=== PATIENT | male | born 1965 | race African-American/Black ===

== ENCOUNTER 2020-08-04 18:25 | Inpatient (IN) | payer OTHER, SELFPAY ==
--- NOTE | 2020-08-04 | ECG_ITS ---
Test Reason : ADMISSION Blood Pressure : / mmHG Vent. Rate : 067 BPM Atrial Rate : 067 BPM P-R Int : 124 ms QRS Dur : 080 ms QT Int : 384 ms P-R-T Axes : 066 044 070 degrees QTc Int : 405 ms Normal sinus rhythm Normal ECG No previous ECGs available Referred By: Shilpi Hansen Electronically Signed By:ELSIE MCKINNEY MD
--- NOTE | 2020-08-04 18:50 | P.CNPS_ITS ---
History of Present Illness Date of Service: 08/04/2020 Chief Complaint: Schizophrenia Reason for Consult: 54 yo male brought to [facility] ED on 06/30/20. Brought to [facility] via ambulance. Mother reports pt has hx of schizophrenia and was increasingly violent at [facility]. He was throwing chemical around the house getting them in food and in living spaces. Pt li=ves with mother. Mother found him up wandering in middle of night with a knife stating he was going to kill the neighbirs. Additional Sources of Information: consultation with yoanna Allen [facility] Care Team, Dr Oleary in [facility] ED, and nursing on who completed nurse to nurse report with [facility] HPI Past Psychiatric History: Admitted to psych at [facility] in December 2019. No reported meds at home Became aggressive, assaultive, and paranoid upon transfer from [facility] and given Haldol 5 mg and ativan 2 mg IM at [facility]. Pt arrived at [facility] and sleepy. Unable to sign conditional voluntary at this time Medically cleared at [facility] NEUROPSYHILIS POSITIVE AND HIV POSITIVE COVID NEGATIVE ON 07/31/20 Personal & Social History: LIVES WITH MOM Assessment & Plan Assessment & Plan (1) Acute (undifferentiated) schizophrenia: Status: Acute Code(s): F23 - Brief psychotic disorder Recommendations: pt to be admitted to on sect 12 B (2) Psychosis: Status: Acute Code(s): F29 - Unspecified psychosis not due to a substance or known physiological condition Greater than 50% of the session was spent on counseling and/or coordination of care
--- NOTE | 2020-08-04 18:50 | PM.PSYCN ---
History of Present Illness Date of Service: 08/04/2020 Chief Complaint: Schizophrenia Reason for Consult: 54 yo male brought to [facility] ED on 06/30/20. Brought to [facility] via ambulance. Mother reports pt has hx of schizophrenia and was increasingly violent at [facility]. He was throwing chemical around the house getting them in food and in living spaces. Pt li=ves with mother. Mother found him up wandering in middle of night with a knife stating he was going to kill the neighbirs. Additional Sources of Information: consultation with yoanna Allen [facility] Care Team, Dr Oleary in [facility] ED, and nursing on who completed nurse to nurse report with [facility] HPI Past Psychiatric History: Admitted to psych at [facility] in December 2019. No reported meds at home Became aggressive, assaultive, and paranoid upon transfer from [facility] and given Haldol 5 mg and ativan 2 mg IM at [facility]. Pt arrived at [facility] and sleepy. Unable to sign conditional voluntary at this time Medically cleared at [facility] NEUROPSYHILIS POSITIVE AND HIV POSITIVE COVID NEGATIVE ON 07/31/20 Personal & Social History: LIVES WITH MOM Assessment & Plan Assessment & Plan (1) Acute (undifferentiated) schizophrenia: Status: Acute Code(s): F23 - Brief psychotic disorder Recommendations: pt to be admitted to on sect 12 B (2) Psychosis: Status: Acute Code(s): F29 - Unspecified psychosis not due to a substance or known physiological condition Greater than 50% of the session was spent on counseling and/or coordination of care
--- NOTE | 2020-08-04 19:20 | PC.NURSE ---
PT arrived on unit 18:55. PT sleepy @ this time and refused VS. PT received 5 mg of Haldol IM and 2 mg of Ativan IM before leaving [facility] at approximately 18:00 due to combative behavior. PT was stating he was not [place] and he is an imposter. Will complete admission when PT is able.
[2020-08-04 19:41] VITALS: BMI 25.3
--- NOTE | 2020-08-04 22:26 | PC.ADMIT ---
PT arrived on unit @ 16:55. PT heavily sedated after receiving 5mg Haldol IM and 2mg Ativan IM. Unable to complete full admission assessment due to patients sedated mental status.
[2020-08-05 07:08] LABS: MANUAL DIFF FLAG NO
[2020-08-05 07:13] LABS: Basophils Percent Auto 0.5 % (0-2); Eosinophils Absolute Auto 0.2 X10*3/uL (0.0-0.4); Eosinophils Percent Auto 5.2 % (0-4); Hematocrit 39.5 % (42-52); Hemoglobin 12.3 g/dl (14.0-18.0); Imm Gran Abs Auto 0.01 X10*3/uL (0.00-0.03); Imm Gran Pct Auto 0.3 % (0.0-0.4); Lymphocytes Absolute Auto 1.9 X10*3/uL (1.2-4.9); Lymphocytes Percent Auto 52.2 % (20-40); Mean Corpuscular HGB Conc 31.1 g/dl (31.0-36.0); Mean Corpuscular Hemoglobin 27.4 pg (27.0-33.0); Mean Platelet Volume 8.6 fL (9.4-12.4); Monocytes Absolute Auto 0.3 X10*3/uL (0.1-1.2); Monocytes Percent Auto 8.8 % (2-11); Neutrophils Absolute Auto 1.2 X10*3/uL (2.0-8.3); Platelet Count 183 X10*3/uL (160-400); Red Blood Count 4.49 X10*6/uL (4.60-5.80); Red Cell Distribution Width 13.2 % (11.0-16.0); White Blood Count 3.6 X10*3/uL (4.8-10.8)
[2020-08-05 07:46] LABS: Alanine Aminotransferase 13 U/L (0-40); Albumin Level 4.2 g/dL (3.5-5.0); Alkaline Phosphatase 59 U/L (39-117); Anion Gap 11 (12-20); Aspartate Amino Transferase 25 U/L (5-37); Bilirubin Direct 0.4 mg/dL (0.0-0.5); Blood Urea Nitrogen 15 mg/dL (9-16); Calcium 9.2 mg/dL (8.4-10.2); Carbon Dioxide 28 mmol/L (22-29); Chloride 105 mmol/L (96-108); Cholesterol 193 mg/dL; Creatinine Clr Calc Pharmacy 88.4; Estimated Glomerular Filt Rate > 60; Glucose Fasting 83 mg/dL (60-99); HDL Cholesterol 49 mg/dL; LDL Cholesterol Calculated 128 mg/dl; Potassium 4.5 mmol/L (3.3-5.1); Sodium 139 mmol/L (135-145); Total Protein 7.3 g/dL (6.5-8.0); Triglycerides 80 mg/dL
[2020-08-05 07:55] LABS: Free T4 (Free Thyroxine) 0.97 ng/dL (0.71-1.85)
[2020-08-05 08:09] LABS: Estimated Average Glucose 117 mg/dL; Hemoglobin A1c % 5.7 %
[2020-08-05 08:10] LABS: Vitamin B12 997 pg/mL (200-900)
--- NOTE | 2020-08-05 11:25 | PC.ADMIT ---
Pts admission completed this shift. Pt initially denies all mental health problems and states he does not know why he is here. Pt denies any medical problems. Pt denies taking any medications and the need to take medications. Pt denies SI/HI. At some point in the admission pt started to talk about virtual people who come into his house and steal things from him, such as food. Pt states these people live upstairs from him. Pt reports his mother does not understand this as she is old and doesnt understand technology. Pt cooperative with questioning, although denying any complaints. Pt has no insight into mental illness.
--- NOTE | 2020-08-05 11:56 | PM.IMCN ---
History of Present Illness Data of Consult Service Date: 08/05/20 Primary Care Provider: Unknown Physician HPI Reason for consult: Medical evaluation 54 year male with Schizophrenia who is presently admitted to Psych for decompensated schizophrenia. Patient is presently rather cooperative, and aswered questions apropriately. He has no acute medical complaint, he says he takes no medication for chronic medical illnesses, he used to smoke but quit years ago and doesn't drink alcohol or use ilicit drugs. He is no having any other issues, such as fever, sob or chest pain. I reviewed his labs, ECG to be unremarkable. Review of Systems Review of Systems: Gen: no fever Resp: no sob, no cough CV: no chest, no BURGOS, no leg edema GI: No n/v, no abd pain Neuro: No confusion Yes all other systems are reviewed and are negative [facility] Family history: reviewed and not pertinent Social History Household Members: Family Household Members Other:: mom Housing: Apartment Do you presently have visiting nurse or other home services: No Unable to assess alcohol history related to: Unknown Patient Tobacco Use Status: Current everyday Tobacco user Patient Interested in Nicotine Replacement: No Use of substances other than those prescribed or required for medical reasons: Unknown Currently Displaying Signs/Symptoms of Drug Intoxication Withdrawal: No Other Past Substance Use Problem:: pt denies, however d/t mental status unknown if pt is telling the truth Advance Directives: No Advance Directives Information Provided: No Do you have thoughts of harming others: None Do you have a plan to hurt others: No Plan Recently lost weight without trying: Unsure Meds Allergies Allergy/AdvReac Type Severity Reaction Status Date / Time No Known Allergies Allergy Verified 08/04/20 20:02 Active Medications: Current Medications Generic Name Dose Route Start Last Admin Trade Name Freq PRN Reason Stop Dose Admin Acetaminophen 650 mg 08/04/20 20:03 Acetaminophen 325 Mg Tablet PO Q6H PRN Headache/Pain Mild Scale (1-3) Al Hydroxide/Mg Hydroxide 30 ml 08/04/20 20:03 Magnesium Hydrox/Alum Hydrox 30 Ml Oral.Susp PO Q6H PRN Heartburn/Nausea Diphenhydramine HCl 50 mg 08/05/20 10:07 Diphenhydramine Hcl 25 Mg Tablet PO Q4H PRN agitation Haloperidol 5 mg 08/05/20 10:07 Haloperidol 5 Mg Tablet PO Q4H PRN agitation Hydroxyzine HCl 25 mg 06/29/21 20:03 Hydroxyzine Hcl 25 Mg Tablet PO BEDTIME PRN Anxiety Lorazepam 2 mg 08/05/20 10:07 Lorazepam 1 Mg Tablet PO Q4H PRN agitation Magnesium Hydroxide 30 ml 08/04/20 20:03 Milk Of Magnesia 30 Ml Oral.Susp PO DAILY PRN Constipation Trazodone HCl 50 mg 08/04/20 20:03 Trazodone Hcl 50 Mg Tablet PO BEDTIME PRN Insomnia Home Medications Medication Instructions Recorded Confirmed Last Taken Type Unobtainable 08/05/20 08/05/20 Unknown History Physical Exam Vital Signs and Narrative: Vital Signs: Body Mass Index 25.3 Const: Other: Constitutional Awake and Alert, No apparent distress Neck Supple, No lymphadenopathy Cardiovascular RRR, No M/R/G, S1 S2, No S3 S4, No pedal edema Respiratory Lungs clear, No respiratory distress Gastrointestinal Non tender, Non-distended Skin No rash Neurological Alert & oriented x3 Psychological Appropriate affect Results Labs CBC and Chem 7: 08/05/20 06:55 08/05/20 06:55 Labs: Laboratory Results - last 24 hr 08/05/20 08/05/20 08/05/20 06:55 06:55 06:55 MCV 88.0 MCH 27.4 MCHC 31.1 RDW 13.2 Plt Count 183 MPV 8.6 L Immature Gran % (Auto) 0.3 Neut % (Auto) 33.0 L Lymph % (Auto) 52.2 H [place] % (Auto) 8.8 Eos % (Auto) 5.2 H Baso % (Auto) 0.5 Lymph # (Auto) 1.9 [place] # (Auto) 0.3 Eos # (Auto) 0.2 Baso # (Auto) 0.0 Abs Immat Gran (auto) 0.01 Absolute Neuts (auto) 1.2 L Absolute Nucleated RBC 0.000 Nucleated RBC % (auto) 0.0 Anion Gap 11 L Estim Creat Clear Calc 88.4 Estimated GFR > 60 Fasting Glucose 83 Estimat Average Glucose 117 Hemoglobin A1c % 5.7 Calcium 9.2 Total Bilirubin 1.0 Direct Bilirubin 0.4 AST 25 ALT 13 Alkaline Phosphatase 59 Total Protein 7.3 Albumin 4.2 Triglycerides 80 Cholesterol 193 LDL Cholesterol, Calc 128 HDL Cholesterol 49 Vitamin B12 Free T4 0.97 08/05/20 06:55 MCV MCH MCHC RDW Plt Count MPV Immature Gran % (Auto) Neut % (Auto) Lymph % (Auto) [place] % (Auto) Eos % (Auto) Baso % (Auto) Lymph # (Auto) [place] # (Auto) Eos # (Auto) Baso # (Auto) Abs Immat Gran (auto) Absolute Neuts (auto) Absolute Nucleated RBC Nucleated RBC % (auto) Anion Gap Estim Creat Clear Calc Estimated GFR Fasting Glucose Estimat Average Glucose Hemoglobin A1c % Calcium Total Bilirubin Direct Bilirubin AST ALT Alkaline Phosphatase Total Protein Albumin Triglycerides Cholesterol LDL Cholesterol, Calc HDL Cholesterol Vitamin B12 997 H Free T4 Assessment and Plan (1) Psychosis: Status: Acute 54 year male with currently Psychiatrically hospitalized for Psychosis, has no acute medical issues at this time. Reveiewed labs, ECG, he has mild leukopenia of unknown significant and should monitored over time. Otherwise, continue present Psychiatric care. Please contact with new issues or concerns.
[2020-08-05] MEDS: risperiDONE 2 MG TABLET PO ×2 (14:19→20:47)
--- NOTE | 2020-08-05 16:44 | HO.PSYADMNOT ---
HPI Chief Complaint: Schizophrenia Sources of Information: patient interviewed, chart reviewed and crisis/core team assessment reviewed HPI Subjective Notes: Araujo Warning (Araujo warning given including mention that patients participation is voluntary and the possibility of court ordered involuntary commitment and treatment with antipsychotics. ), Section 8 and Conditional Voluntary (refused to sign) Narrative: patient is a 54-year-old male with history of psychotic illness who presents for disorganized behavior, threatening behavior and paranoid delusional thinking. Patient lying in bed on approach and remained so. He says that he is doing very well. When asked about how he ended up in the hospital he says they brought me here for test. He says ask the people brought me here they will take me the truth. 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 He says they also contaminate his food. He denies that he made any threats to hurt anyone or that he wants to hurt anyone but does allude to saying he would hurt his neighbors if they do not stop stealing and contaminating his food. Patient denies any SI at all. he also denies that he reportedly has stood in his mother's or family's bedroom holding a knife and making any threatening comments to anyone about anything. Patient denies AVH, depression or anxiety Or history of trauma and says he is very healthy. 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 and also is buying this hospital and [place]. Patient says that he talks to his coworkers about business stuff. and has a Bridger In his ear that is in visible. Since it is a virtual and with which he communicates to all his coworkers about regular business communications. He says that in his [place] he hears his coworkers telling him about the people upstairs, what they have been doing and they are aware of the neighbors intrusiveness. patient denies any insomnia. He does not want psychiatric medications because he is healthy and does not need them. [place] also mentioned history of Biktarvy (retroviral for HIV); he denies that this is his medication and denies any history of having HIV. He says he was prescribed this but he never picked it up and that people have taken his identity and impersonated him by coming to the hospital and that such medications are for them not him. Patient also says that he is currently in a movie and that typewriter repairer, whether typewriter repairer knows it or not, is a part of this movie, playing a role in it; he says that his admission to [facility] psychiatric unit a year ago was also part of a movie and this is just a continuation. regarding his mother's concern, patient says that his mother is an elderly lady and does not believe any of this because she is unaware of the virtual world and the existence of [employer] technology. Past Psychiatric History: Admitted to psych at [facility] in December 2019. No reported meds at home Became aggressive, assaultive, and paranoid upon transfer from [facility] and given Haldol 5 mg and ativan 2 mg IM at [facility]. Pt arrived at [facility] and sleepy. Unable to sign conditional voluntary at this time Medical Evaluation Reviewed: Hospitalist Eval Pending [facility] Medical History (Updated 08/05/20 @ 17:00 by Stephen iBggs MD) Schizophrenia Social History: lives with his mother Trauma History: Denied Diagnostics Vital Signs (24Hr): Body Mass Index 25.3 Labs Results: 08/05/20 06:55 08/05/20 06:55 Labs: Laboratory Results - last 48 hr 08/05/20 08/05/20 08/05/20 06:55 06:55 06:55 WBC 3.6 L RBC 4.49 L Hgb 12.3 L Hct 39.5 L MCV 88.0 MCH 27.4 MCHC 31.1 RDW 13.2 Plt Count 183 MPV 8.6 L Immature Gran % (Auto) 0.3 Neut % (Auto) 33.0 L Lymph % (Auto) 52.2 H [place] % (Auto) 8.8 Eos % (Auto) 5.2 H Baso % (Auto) 0.5 Lymph # (Auto) 1.9 [place] # (Auto) 0.3 Eos # (Auto) 0.2 Baso # (Auto) 0.0 Abs Immat Gran (auto) 0.01 Absolute Neuts (auto) 1.2 L Absolute Nucleated RBC 0.000 Nucleated RBC % (auto) 0.0 Sodium 139 Potassium 4.5 Chloride 105 Carbon Dioxide 28 Anion Gap 11 L BUN 15 Creatinine 1.06 Estim Creat Clear Calc 88.4 Estimated GFR > 60 Fasting Glucose 83 Estimat Average Glucose 117 Hemoglobin A1c % 5.7 Calcium 9.2 Total Bilirubin 1.0 Direct Bilirubin 0.4 AST 25 ALT 13 Alkaline Phosphatase 59 Total Protein 7.3 Albumin 4.2 Triglycerides 80 Cholesterol 193 LDL Cholesterol, Calc 128 HDL Cholesterol 49 Vitamin B12 Free T4 0.97 08/05/20 06:55 WBC RBC Hgb Hct MCV MCH MCHC RDW Plt Count MPV Immature Gran % (Auto) Neut % (Auto) Lymph % (Auto) [place] % (Auto) Eos % (Auto) Baso % (Auto) Lymph # (Auto) [place] # (Auto) Eos # (Auto) Baso # (Auto) Abs Immat Gran (auto) Absolute Neuts (auto) Absolute Nucleated RBC Nucleated RBC % (auto) Sodium Potassium Chloride Carbon Dioxide Anion Gap BUN Creatinine Estim Creat Clear Calc Estimated GFR Fasting Glucose Estimat Average Glucose Hemoglobin A1c % Calcium Total Bilirubin Direct Bilirubin AST ALT Alkaline Phosphatase Total Protein Albumin Triglycerides Cholesterol LDL Cholesterol, Calc HDL Cholesterol Vitamin B12 997 H Free T4 Meds/Allergies Meds Home Medications Acetaminophen (Acetaminophen 325 Mg Tablet) 650 mg PO Q6H PRN PRN Reason: Headache/Pain Mild Scale (1-3) Al Hydroxide/Mg Hydroxide (Magnesium Hydrox/Alum Hydrox 30 Ml Oral.Susp) 30 ml PO Q6H PRN PRN Reason: Heartburn/Nausea Diphenhydramine HCl (Diphenhydramine Hcl 25 Mg Tablet) 50 mg PO Q4H PRN PRN Reason: agitation Haloperidol (Haloperidol 5 Mg Tablet) 5 mg PO Q4H PRN PRN Reason: agitation Hydroxyzine HCl (Hydroxyzine Hcl 25 Mg Tablet) 25 mg PO BEDTIME PRN PRN Reason: Anxiety Lorazepam (Lorazepam 1 Mg Tablet) 2 mg PO Q4H PRN PRN Reason: agitation Magnesium Hydroxide (Milk Of Magnesia 30 Ml Oral.Susp) 30 ml PO DAILY PRN PRN Reason: Constipation Risperidone (Risperidone 2 Mg Tablet) 2 mg PO BID SUJATHA Last Admin: 08/05/20 14:19 Dose: 2 mg Documented by: Trazodone HCl (Trazodone Hcl 50 Mg Tablet) 50 mg PO BEDTIME PRN PRN Reason: Insomnia Allergies Allergies Allergy/AdvReac Type Severity Reaction Status Date / Time No Known Allergies Allergy Verified 08/04/20 20:02 Mental Status Exam Mental Status Exam Narrative: Pt is alert and oriented; behavior is cooperative, friendly and calm; patient is not in distress lying in bed with sheets pulled up to his neck; mood is described as good and affect constricted; eye contact appropriate; Speech is normal rate, volume and prosody and not pressured; no psychomotor agitation/retardation present; thought process is organized, linear, logical and goal directed. Thought content focused on paranoid delusions described in HPI; moderate grandiosity; denies any SI/HI. +AH Patients insight and judgment are impaired. Assessment & Plan Assessment & Plan (1) Schizophrenia: Status: Acute Qualifiers: Schizophrenia type: paranoid schizophrenia Qualified Code(s): F20.0 - Paranoid schizophrenia Code(s): F20.9 - Schizophrenia, unspecified Assessment and Plan: IMPRESSION: patient is a 54-year-old male with history of psychotic illness who presents for disorganized behavior, threatening behavior and paranoid delusional thinking. patient presents as floridly psychotic and meets criteria for schizophrenia. Patient currently lacks all insight. Crisis note reports his family says he has been making threats regarding his neighbors and has been threatening the family's presence. Patient currently refuses medications and refuses to sign into the hospital. Will continue to work on getting collateral. Will restart medications he was prescribed in the past, Risperdal; undecided about how to approach infectious disease consult for HIV as patient currently denies having HIV at all and has a history of being aggressive. Patient requires psychiatric admission for his safety, the safety of others, for medication management and stabilization plan: patient on 12 B Q 15 minutes checks for checks Will start Risperdal 2 mg b.i.d. in case patient changes his mind and is willing to take it Will continue to seek collateral will order Infectious disease consult at some point Patient educated on: diagnosis Informed Consent: understands Reason for continued inpatient stay Substantial Risk for: harm to others and med/psych decompensation
[2020-08-05 17:51] VITALS: BP 101/73; PULSE 84; RESP 16; TEMP 36.8; O2SAT 99
[2020-08-06 06:00] VITALS: BP 112/70; PULSE 59; RESP 18; O2SAT 98
[2020-08-06 07:00] VITALS: BMI 25.0
[2020-08-06] MEDS: risperiDONE 2 MG TABLET PO ×2 (08:30→21:31)
--- NOTE | 2020-08-06 16:39 | HO.PSYCHPN ---
Subjective Subjective Date of Service: 08/06/20 Reason For Visit: Schizophrenia Interim History: patient lying in bed. He says he is doing great and denies any problems. patient continues to deny any SI or HI saying never in my whole life. He also denies any side effects from Risperdal and said he felt nothing from taking. 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 Patient gave residential mortgage underwriter verbal permission to discuss his case with his mother and his nephew, Aiden who was living with them up until a few days ago Medication Compliance: Yes Side effects from medications: No Attending Groups: No Mental Status Exam Mental Status Exam Narrative: Pt is alert and oriented; behavior is cooperative, friendly and calm; patient is not in distress lying in bed, wearing casual cloths; mood is described as great and affect constricted; eye contact appropriate; Speech is normal rate, volume and prosody and not pressured; no psychomotor agitation/retardation present; thought process is organized, linear, logical and goal directed. Thought content with continued paranoid delusions and moderate grandiosity; denies any SI/HI. +AH Patients insight and judgment are impaired Diagnostics Vital Signs (24Hr): Vital Signs - 24 hr 08/05/20 17:51 08/06/20 06:00 Temperature 98.3 F Pulse Rate 84 59 Respiratory Rate 16 18 Blood Pressure 101/73 112/70 Pulse Oximetry 99 98 Body Mass Index 25.0 Labs Results: 08/05/20 06:55 08/05/20 06:55 Labs: Laboratory Results - last 48 hr 08/05/20 08/05/20 08/05/20 06:55 06:55 06:55 WBC 3.6 L RBC 4.49 L Hgb 12.3 L Hct 39.5 L MCV 88.0 MCH 27.4 MCHC 31.1 RDW 13.2 Plt Count 183 MPV 8.6 L Immature Gran % (Auto) 0.3 Neut % (Auto) 33.0 L Lymph % (Auto) 52.2 H [place] % (Auto) 8.8 Eos % (Auto) 5.2 H Baso % (Auto) 0.5 Lymph # (Auto) 1.9 [place] # (Auto) 0.3 Eos # (Auto) 0.2 Baso # (Auto) 0.0 Abs Immat Gran (auto) 0.01 Absolute Neuts (auto) 1.2 L Absolute Nucleated RBC 0.000 Nucleated RBC % (auto) 0.0 Sodium 139 Potassium 4.5 Chloride 105 Carbon Dioxide 28 Anion Gap 11 L BUN 15 Creatinine 1.06 Estim Creat Clear Calc 88.4 Estimated GFR > 60 Fasting Glucose 83 Estimat Average Glucose 117 Hemoglobin A1c % 5.7 Calcium 9.2 Total Bilirubin 1.0 Direct Bilirubin 0.4 AST 25 ALT 13 Alkaline Phosphatase 59 Total Protein 7.3 Albumin 4.2 Triglycerides 80 Cholesterol 193 LDL Cholesterol, Calc 128 HDL Cholesterol 49 Vitamin B12 Free T4 0.97 08/05/20 06:55 WBC RBC Hgb Hct MCV MCH MCHC RDW Plt Count MPV Immature Gran % (Auto) Neut % (Auto) Lymph % (Auto) [place] % (Auto) Eos % (Auto) Baso % (Auto) Lymph # (Auto) [place] # (Auto) Eos # (Auto) Baso # (Auto) Abs Immat Gran (auto) Absolute Neuts (auto) Absolute Nucleated RBC Nucleated RBC % (auto) Sodium Potassium Chloride Carbon Dioxide Anion Gap BUN Creatinine Estim Creat Clear Calc Estimated GFR Fasting Glucose Estimat Average Glucose Hemoglobin A1c % Calcium Total Bilirubin Direct Bilirubin AST ALT Alkaline Phosphatase Total Protein Albumin Triglycerides Cholesterol LDL Cholesterol, Calc HDL Cholesterol Vitamin B12 997 H Free T4 Medications Medications Current Medications Generic Name Dose Route Start Last Admin Trade Name Freq PRN Reason Stop Dose Admin Acetaminophen 650 mg 08/04/20 20:03 Acetaminophen 325 Mg Tablet PO Q6H PRN Headache/Pain Mild Scale (1-3) Al Hydroxide/Mg Hydroxide 30 ml 08/04/20 20:03 Magnesium Hydrox/Alum Hydrox 30 Ml Oral.Susp PO Q6H PRN Heartburn/Nausea Diphenhydramine HCl 50 mg 08/05/20 10:07 Diphenhydramine Hcl 25 Mg Tablet PO Q4H PRN agitation Haloperidol 5 mg 08/05/20 10:07 Haloperidol 5 Mg Tablet PO Q4H PRN agitation Hydroxyzine HCl 25 mg 08/04/20 20:03 Hydroxyzine Hcl 25 Mg Tablet PO BEDTIME PRN Anxiety Lorazepam 2 mg 08/05/20 10:07 Lorazepam 1 Mg Tablet PO Q4H PRN agitation Magnesium Hydroxide 30 ml 08/04/20 20:03 Milk Of Magnesia 30 Ml Oral.Susp PO DAILY PRN Constipation Risperidone 2 mg 08/05/20 12:55 08/06/20 08:30 Risperidone 2 Mg Tablet PO 2 mg BID SUJATHA Administration Trazodone HCl 50 mg 08/04/20 20:03 Trazodone Hcl 50 Mg Tablet PO BEDTIME PRN Insomnia Allergies Allergies Allergy/AdvReac Type Severity Reaction Status Date / Time No Known Allergies Allergy Verified 08/04/20 20:02 Assessment & Plan Assessment & Plan (1) Schizophrenia: Qualifiers: Schizophrenia type: paranoid schizophrenia Qualified Code(s): F20.0 - Paranoid schizophrenia Status: Acute Code(s): F20.9 - Schizophrenia, unspecified Assessment and Plan: IMPRESSION: patient is a 54-year-old male with history of psychotic illness who presents for disorganized behavior, threatening behavior and paranoid delusional thinking. patient presents as floridly psychotic and meets criteria for schizophrenia. Patient currently lacks all insight. Crisis note reports his family says he has been making threats regarding his neighbors and has been threatening the family's presence. Patient currently refuses medications and refuses to sign into the hospital. Will continue to work on getting collateral. Will restart medications he was prescribed in the past, Risperdal; undecided about how to approach infectious disease consult for HIV as patient currently denies having HIV at all and has a history of being aggressive. Patient requires psychiatric admission for his safety, the safety of others, for medication management and stabilization patient has been taking Risperdal 2 mg b.i.d. since admission [employer] Beauty [employer] Manager and team have try to get a hold of collateral, his mother to no avail he has given verbal permission to talk to both his mother and his nephew Aiden. Given his history reported homicidal threats, will likely have to hold patient for safety and stabilization. plan: patient on 12 B Q 15 minutes checks for checks Will start Risperdal 2 mg b.i.d. in case patient changes his mind and is willing to take it Will continue to seek collateral will order Infectious disease consult at some point As he has been prescribed HIV retroviral medication Greater than 50% of the session was spent on counseling and/or coordination of care Reason for contiued inpatient stay Substantial Risk for: med/psych decompensation
[2020-08-06 17:46] VITALS: BP 119/69; PULSE 81; TEMP 36.9
[2020-08-07] MEDS: risperiDONE 2 MG TABLET PO ×2 (08:48→20:59)
--- NOTE | 2020-08-07 09:57 | P.PNPSI_ITS ---
Subjective Subjective Date of Service: 08/07/20 Reason For Visit: Schizophrenia Interim History: patient lying in bed on inspector automatic typewriter's approach. He says that he is good Rn Stars let patient know that staff spoke to his mom who said that he cannot come home unless he is continuing to take medications patient said I do not want any medications. . . Nothing is wrong with me. inspector automatic typewriter reminded patient that he has been taking her Risperdal has been offered to him which helps someone's mind think clearly to which he said his mind thinks fine. Rn Stars 3 re-issued [place] warning and explained that the hospital has decided to ask the court to have him stay longer. Patient said I am not staying longer. . . There is nothing wrong with me. inspector automatic typewriter explained again that patient's family reports he was making threats to hurt the neighbors and was at times holding a knife. Patient said that is absolutely not true, that he has never made threats to anybody, that it was the neighbors were making threats to him and that inspector automatic typewriter should get the police report. Patient then said that his mother is mentally ill. Rn Stars agreed to try and secure the police report and patient said thank you good bye and interview was over patient gave verbal permission for inspector automatic typewriter to discuss his admission with his mother and nephew Aiden. Rn Stars spoke to Randa in who reports that he woke up from sleep to find the patient standing in his bedroom with a knife in his hand. When Aiden woke up he says his uncle ran out of the room; he says his uncle has been cursing and talking to himself all day and night. He said his talks about how the neighbors are watching him and that he will hurt them. Aiden reports that when the police came patient was pointing to imaginary cameras all over the house and at 1 point put his finger in his ear and acted as if he was talking on the phone. Rn Stars then spoke with patient's mother who said that she is very frightened of him. She said he is cursing all the time. She reports that her son Had a knife in his hand and referring to the neighbor's,said i'm going to kill the them and then said I am going to go outside and wait for them. Then he said he was going to go upstairs and kick their door in. When she said that you have to stop this he made a threatening remark toward her. patient's mother said she got the knife and hid it. At 1 point she reports patient said that his nephew Mendel is trying to kill him. His mother says that he has syphilis and HIV but has refused treatment. 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 She says up until July 2019 he was working full-time in [place]. Mental Status Exam Mental Status Exam Narrative: Pt is alert and oriented; behavior is marginally cooperative, superficially friendly, calmly lying in bed; patient is not in distress, wearing casual cloths; mood is described as good and affect constricted; eye contact appropriate; Speech is alexander, but normal rate, volume and prosody and not pressured; no psychomotor agitation/retardation present; thought process is organized, linear, logical and goal directed. Thought content with continued paranoid delusions and moderate grandiosity; denies any SI/HI. +AH Patients insight and judgment are impaired Diagnostics Vital Signs (24Hr): Vital Signs - 24 hr 08/06/20 17:46 Temperature 98.5 F Pulse Rate 81 Blood Pressure 119/69 Body Mass Index 25.0 Labs Results: 08/05/20 06:55 08/05/20 06:55 Medications Medications Current Medications Generic Name Dose Route Start Last Admin Trade Name Vaughnq PRN Reason Stop Dose Admin Acetaminophen 650 mg 08/04/20 20:03 Acetaminophen 325 Mg Tablet PO Q6H PRN Headache/Pain Mild Scale (1-3) Al Hydroxide/Mg Hydroxide 30 ml 08/04/20 20:03 Magnesium Hydrox/Alum Hydrox 30 Ml Oral.Susp PO Q6H PRN Heartburn/Nausea Diphenhydramine HCl 50 mg 08/05/20 10:07 Diphenhydramine Hcl 25 Mg Tablet PO Q4H PRN agitation Haloperidol 5 mg 08/05/20 10:07 Haloperidol 5 Mg Tablet PO Q4H PRN agitation Hydroxyzine HCl 25 mg 08/04/20 20:03 Hydroxyzine Hcl 25 Mg Tablet PO BEDTIME PRN Anxiety Lorazepam 2 mg 08/05/20 10:07 Lorazepam 1 Mg Tablet PO Q4H PRN agitation Magnesium Hydroxide 30 ml 08/04/20 20:03 Milk Of Magnesia 30 Ml Oral.Susp PO DAILY PRN Constipation Risperidone 2 mg 08/05/20 12:55 08/07/20 08:48 Risperidone 2 Mg Tablet PO 2 mg BID SUJATHA Administration Trazodone HCl 50 mg 08/04/20 20:03 Trazodone Hcl 50 Mg Tablet PO BEDTIME PRN Insomnia Allergies Allergies Allergy/AdvReac Type Severity Reaction Status Date / Time No Known Allergies Allergy Verified 08/04/20 20:02 Assessment & Plan Assessment & Plan (1) Schizophrenia: Qualifiers: Schizophrenia type: paranoid schizophrenia Qualified Code(s): F20.0 - Paranoid schizophrenia Status: Acute Code(s): F20.9 - Schizophrenia, unspecified Assessment and Plan: IMPRESSION: patient is a 54-year-old male with history of psychotic illness who presents for disorganized behavior, threatening behavior and paranoid delusional thinking. patient presents as floridly psychotic and meets criteria for schizophrenia. Patient currently lacks all insight. Crisis note reports his family says he has been making threats regarding his neighbors and has been threatening the family's presence. Patient currently refuses medications and refuses to sign into the hospital. Will continue to work on getting collateral. Will restart medications he was prescribed in the past, Risperdal; undecided about how to approach infectious disease consult for HIV as patient currently denies having HIV at all and has a history of being aggressive. Patient requires psychiatric admission for his safety, the safety of others, for medication management and stabilization patient has been taking Risperdal 2 mg b.i.d. since admission he has given verbal permission to talk to both his mother and his nephew Aiden And both report that patient has been making verbal threats to kill the neighbors and some times holding a knife while saying so. Given that patient is psychotic, has been reportedly making homicidal threats while holding a weapon and has no insight, team agreed to petition court for civil commitment for safety and stabilization. despite saying that he does not want medications and does not need them, he has thus far has been taking Risperdal 2 mg b.i.d. He said to the nurse that he figures if he takes it he will get out of here sooner. He remains floridly psychotic however with paranoid, persecutory delusions and auditory hallucinations plan: patient on 12 B Q 15 minutes checks for checks continue Risperdal 2 mg b.i.d. this patient has been willing to take it and it has been prescribed in the past Will continue to seek collateral will order Infectious disease consult at some point As he has been prescribed HIV retroviral medication; mother reports patient has untreated syphilis Greater than 50% of the session was spent on counseling and/or coordination of care Reason for contiued inpatient stay Substantial Risk for: harm to others
[2020-08-07 17:01] VITALS: BP 114/74; PULSE 68; RESP 16; TEMP 36.8; O2SAT 99
[2020-08-08 06:50] VITALS: BP 132/66; PULSE 62; RESP 16; O2SAT 99
[2020-08-08] MEDS: risperiDONE 2 MG TABLET PO ×2 (08:31→21:58)
--- NOTE | 2020-08-08 17:45 | HO.PSYCHPN ---
Subjective Subjective Date of Service: 08/08/20 Reason For Visit: Schizophrenia Subjective Notes: Section 7 Interim History: mood calm, lying in bed, polite but superficial; saying he doesn't need anything Medication Compliance: Yes Side effects from medications: No Attending Groups: No Review of Systems Review of Systems no changes Mental Status Exam Mental Status Exam Patient Appearance: Unkempt Patient Orientation: Person Level of Consciousness: Awake Patient Behavior: Guarded and Avoidant Mood Description: Apprehensive Affect Description: Withdrawn Ability to Follow Directions: Fair Speech Pattern: Impoverished, Appropriate and Soft-Spoken Thought Process: Evasive Thought Content: positive for [place] Judgement: Fair Diagnostics Vital Signs (24Hr): Vital Signs - 24 hr 08/08/20 06:50 Pulse Rate 62 Respiratory Rate 16 Blood Pressure 132/66 Pulse Oximetry 99 Body Mass Index 25.0 Labs Results: 08/05/20 06:55 08/05/20 06:55 Medications Medications Current Medications Generic Name Dose Route Start Last Admin Trade Name Freq PRN Reason Stop Dose Admin Acetaminophen 650 mg 08/04/20 20:03 Acetaminophen 325 Mg Tablet PO Q6H PRN Headache/Pain Mild Scale (1-3) Al Hydroxide/Mg Hydroxide 30 ml 08/04/20 20:03 Magnesium Hydrox/Alum Hydrox 30 Ml Oral.Susp PO Q6H PRN Heartburn/Nausea Diphenhydramine HCl 50 mg 08/05/20 10:07 Diphenhydramine Hcl 25 Mg Tablet PO Q4H PRN agitation Haloperidol 5 mg 08/05/20 10:07 Haloperidol 5 Mg Tablet PO Q4H PRN agitation Hydroxyzine HCl 25 mg 08/04/20 20:03 Hydroxyzine Hcl 25 Mg Tablet PO BEDTIME PRN Anxiety Lorazepam 2 mg 08/05/20 10:07 Lorazepam 1 Mg Tablet PO Q4H PRN agitation Magnesium Hydroxide 30 ml 08/04/20 20:03 Milk Of Magnesia 30 Ml Oral.Susp PO DAILY PRN Constipation Risperidone 2 mg 08/05/20 12:55 08/08/20 08:31 Risperidone 2 Mg Tablet PO 2 mg BID SUJATHA Administration Trazodone HCl 50 mg 08/04/20 20:03 Trazodone Hcl 50 Mg Tablet PO BEDTIME PRN Insomnia Allergies Allergies Allergy/AdvReac Type Severity Reaction Status Date / Time No Known Allergies Allergy Verified 06/29/21 20:02 Assessment & Plan Assessment & Plan (1) Schizophrenia: Qualifiers: Schizophrenia type: paranoid schizophrenia Qualified Code(s): F20.0 - Paranoid schizophrenia Status: Acute Code(s): F20.9 - Schizophrenia, unspecified Assessment and Plan: IMPRESSION: patient is a 54-year-old male with history of psychotic illness who presents for disorganized behavior, threatening behavior and paranoid delusional thinking. patient presents as floridly psychotic and meets criteria for schizophrenia. Patient currently lacks all insight. Crisis note reports his family says he has been making threats regarding his neighbors and has been threatening the family's presence. Patient currently refuses medications and refuses to sign into the hospital. Will continue to work on getting collateral. Will restart medications he was prescribed in the past, Risperdal; undecided about how to approach infectious disease consult for HIV as patient currently denies having HIV at all and has a history of being aggressive. Patient requires psychiatric admission for his safety, the safety of others, for medication management and stabilization patient has been taking Risperdal 2 mg b.i.d. since admission he has given verbal permission to talk to both his mother and his nephew Aiden And both report that patient has been making verbal threats to kill the neighbors and some times holding a knife while saying so. Given that patient is psychotic, has been reportedly making homicidal threats while holding a weapon and has no insight, team agreed to petition court for civil commitment for safety and stabilization. despite saying that he does not want medications and does not need them, he has thus far has been taking Risperdal 2 mg b.i.d. He said to the nurse that he figures if he takes it he will get out of here sooner. He remains floridly psychotic however with paranoid, persecutory delusions and auditory hallucinations plan: no changes Continue with current plan: Q 15 minutes checks for checks continue Risperdal 2 mg b.i.d. this patient has been willing to take it and it has been prescribed in the past Will continue to seek collateral will order Infectious disease consult at some point As he has been prescribed HIV retroviral medication; mother reports patient has untreated syphilis Greater than 50% of the session was spent on counseling and/or coordination of care Reason for contiued inpatient stay Substantial Risk for: harm to self, harm to others, inability to function and med/psych decompensation
[2020-08-08 18:00] VITALS: BP 106/67; PULSE 98; RESP 16; TEMP 37.3; O2SAT 98
[2020-08-09 06:00] VITALS: BP 121/78; PULSE 88; RESP 16; TEMP 36.4; O2SAT 98
[2020-08-09] MEDS: risperiDONE 2 MG TABLET PO ×2 (08:37→21:20)
[2020-08-09] MEDS: Milk of Magnesia 30 ML ORAL.SUSP PO (08:40)
--- NOTE | 2020-08-09 11:42 | P.PNPSI_ITS ---
Subjective Subjective Date of Service: 08/09/20 Reason For Visit: Schizophrenia Interim History: mood calm, lying in bed, polite but superficial; reporting constipation x 2 days; mg citrate ordered. guarded about emotions and internal experience Review of Systems Review of Systems no changes Yes all other systems are reviewed and are negative Gastrointestinal: Reports change in bowel habits and Reports constipation Mental Status Exam Mental Status Exam Narrative: Pt is alert and oriented; behavior is marginally cooperative, superficially friendly, calmly lying in bed; patient is not in distress, wearing casual cloths; mood is described as good and affect constricted; eye contact appropriate; Speech is alexander, but normal rate, volume and prosody and not pressured; no psychomotor agitation/retardation present; thought process is organized, linear, logical and goal directed. Thought content with continued par anoid delusions and moderate grandiosity; denies any SI/HI. +AH Patients insight and judgment are impaired Patient Appearance: Unkempt Patient Orientation: Person Level of Consciousness: Awake Patient Behavior: Guarded and Avoidant Mood Description: Apprehensive Affect Description: Withdrawn Ability to Follow Directions: Fair Speech Pattern: Impoverished, Appropriate and Soft-Spoken Diagnostics Vital Signs (24Hr): Vital Signs - 24 hr 08/08/20 18:00 08/09/20 06:00 Temperature 99.1 F 97.6 F Pulse Rate 98 88 Respiratory Rate 16 16 Blood Pressure 106/67 121/78 Pulse Oximetry 98 98 Body Mass Index 25.0 Labs Results: 08/05/20 06:55 08/05/20 06:55 Medications Medications Current Medications Generic Name Dose Route Start Last Admin Trade Name Freq PRN Reason Stop Dose Admin Acetaminophen 650 mg 08/04/20 20:03 Acetaminophen 325 Mg Tablet PO Q6H PRN Headache/Pain Mild Scale (1-3) Al Hydroxide/Mg Hydroxide 30 ml 08/04/20 20:03 Magnesium Hydrox/Alum Hydrox 30 Ml Oral.Susp PO Q6H PRN Heartburn/Nausea Diphenhydramine HCl 50 mg 08/05/20 10:07 Diphenhydramine Hcl 25 Mg Tablet PO Q4H PRN agitation Haloperidol 5 mg 08/05/20 10:07 Haloperidol 5 Mg Tablet PO Q4H PRN agitation Hydroxyzine HCl 25 mg 08/04/20 20:03 Hydroxyzine Hcl 25 Mg Tablet PO BEDTIME PRN Anxiety Lorazepam 2 mg 08/05/20 10:07 Lorazepam 1 Mg Tablet PO Q4H PRN agitation Magnesium Hydroxide 30 ml 08/04/20 20:03 08/09/20 08:40 Milk Of Magnesia 30 Ml Oral.Susp PO 30 ml DAILY PRN Administration Constipation Risperidone 2 mg 08/05/20 12:55 08/09/20 08:37 Risperidone 2 Mg Tablet PO 2 mg BID SUJATHA Administration Trazodone HCl 50 mg 08/04/20 20:03 Trazodone Hcl 50 Mg Tablet PO BEDTIME PRN Insomnia Allergies Allergies Allergy/AdvReac Type Severity Reaction Status Date / Time No Known Allergies Allergy Verified 08/04/20 20:02 Assessment & Plan Assessment & Plan (1) Schizophrenia: Qualifiers: Schizophrenia type: paranoid schizophrenia Qualified Code(s): F20.0 - Paranoid schizophrenia Status: Acute Code(s): F20.9 - Schizophrenia, unspecified Assessment and Plan: IMPRESSION: patient is a 54-year-old male with history of psychotic illness who presents for disorganized behavior, threatening behavior and paranoid delusional thinking. patient presents as floridly psychotic and meets criteria for schizophrenia. Patient currently lacks all insight. Crisis note reports his family says he has been making threats regarding his neighbors and has been threatening the family's presence. Patient currently refuses medications and refuses to sign into the hospital. Will continue to work on getting collateral. Will restart medications he was prescribed in the past, Risperdal; undecided about how to approach infectious disease consult for HIV as patient currently denies having HIV at all and has a history of being aggressive. Patient requires psychiatric admission for his safety, the safety of others, for medication management and stabilization patient has been taking Risperdal 2 mg b.i.d. since admission he has given verbal permission to talk to both his mother and his nephew Aiden And both report that patient has been making verbal threats to kill the neighbors and some times holding a knife while saying so. Given that patient is psychotic, has been reportedly making homicidal threats while holding a weapon and has no insight, team agreed to petition court for civil commitment for safety and stabilization. despite saying that he does not want medications and does not need them, he has thus far has been taking Risperdal 2 mg b.i.d. He said to the nurse that he figures if he takes it he will get out of here sooner. He remains floridly psychotic however with paranoid, persecutory delusions and auditory hallucinations plan: mg citrate ordered Q 15 minutes checks for checks continue Risperdal 2 mg b.i.d. this patient has been willing to take it and it has been prescribed in the past continue to seek collateral will order Infectious disease consult at some point As he has been prescribed HIV retroviral medication; mother reports patient has untreated syphilis Greater than 50% of the session was spent on counseling and/or coordination of care Reason for contiued inpatient stay Substantial Risk for: harm to self, harm to others, rapid decompensation and med/psych decompensation
[2020-08-09] MEDS: Magnesium Citrate 300 ML SOLUTION 150 ML PO (14:34)
[2020-08-09 17:06] VITALS: BP 120/58; PULSE 64; TEMP 36.3; O2SAT 95
[2020-08-10 06:00] VITALS: BP 119/70; PULSE 66; RESP 16; TEMP 36.5; O2SAT 99
[2020-08-10] MEDS: risperiDONE 2 MG TABLET PO ×2 (09:02→20:34)
--- NOTE | 2020-08-10 12:33 | HO.PSYCHPN ---
Subjective Subjective Date of Service: 08/10/20 Reason For Visit: Schizophrenia Interim History: mood calm, lying in bed, polite but superficial;stating he is here to make a movie. guarded about emotions and internal experience Review of Systems Review of Systems no changes Yes all other systems are reviewed and are negative Gastrointestinal: Reports change in bowel habits and Reports constipation Mental Status Exam Mental Status Exam Patient Appearance: Unkempt Patient Orientation: Person Level of Consciousness: Awake Patient Behavior: Guarded and Avoidant Mood Description: Apprehensive Affect Description: Withdrawn Patient Cognition Impaired: Yes Ability to Follow Directions: Fair Speech Pattern: Impoverished, Appropriate and Soft-Spoken Delusions: Grandiose and Present (states he is currently here to make a movie) Thought Process: Illogical Thought Content: positive for Disorganized Judgement: Poor Diagnostics Vital Signs (24Hr): Vital Signs - 24 hr 08/09/20 17:06 08/10/20 06:00 Temperature 97.4 F 97.7 F Pulse Rate 64 66 Respiratory Rate 16 Blood Pressure 120/58 L 119/70 Pulse Oximetry 95 99 Body Mass Index 25.0 Labs Results: 08/05/20 06:55 08/05/20 06:55 Medications Medications Current Medications Generic Name Dose Route Start Last Admin Trade Name Freq PRN Reason Stop Dose Admin Acetaminophen 650 mg 08/04/20 20:03 Acetaminophen 325 Mg Tablet PO Q6H PRN Headache/Pain Mild Scale (1-3) Al Hydroxide/Mg Hydroxide 30 ml 08/04/20 20:03 Magnesium Hydrox/Alum Hydrox 30 Ml Oral.Susp PO Q6H PRN Heartburn/Nausea Diphenhydramine HCl 50 mg 08/05/20 10:07 Diphenhydramine Hcl 25 Mg Tablet PO Q4H PRN agitation Haloperidol 5 mg 08/05/20 10:07 Haloperidol 5 Mg Tablet PO Q4H PRN agitation Hydroxyzine HCl 25 mg 08/04/20 20:03 Hydroxyzine Hcl 25 Mg Tablet PO BEDTIME PRN Anxiety Lorazepam 2 mg 08/05/20 10:07 Lorazepam 1 Mg Tablet PO Q4H PRN agitation Magnesium Hydroxide 30 ml 08/04/20 20:03 08/09/20 08:40 Milk Of Magnesia 30 Ml Oral.Susp PO 30 ml DAILY PRN Administration Constipation Risperidone 2 mg 08/05/20 12:55 08/10/20 09:02 Risperidone 2 Mg Tablet PO 2 mg BID SUJATHA Administration Trazodone HCl 50 mg 08/04/20 20:03 Trazodone Hcl 50 Mg Tablet PO BEDTIME PRN Insomnia Allergies Allergies Allergy/AdvReac Type Severity Reaction Status Date / Time No Known Allergies Allergy Verified 08/04/20 20:02 Assessment & Plan Assessment & Plan (1) Schizophrenia: Qualifiers: Schizophrenia type: paranoid schizophrenia Qualified Code(s): F20.0 - Paranoid schizophrenia Status: Acute Code(s): F20.9 - Schizophrenia, unspecified Assessment and Plan: IMPRESSION: patient is a 54-year-old male with history of psychotic illness who presents for disorganized behavior, threatening behavior and paranoid delusional thinking. patient presents as floridly psychotic and meets criteria for schizophrenia. Patient currently lacks all insight. Crisis note reports his family says he has been making threats regarding his neighbors and has been threatening the family's presence. Patient currently refuses medications and refuses to sign into the hospital. Will continue to work on getting collateral. Will restart medications he was prescribed in the past, Risperdal; undecided about how to approach infectious disease consult for HIV as patient currently denies having HIV at all and has a history of being aggressive. Patient requires psychiatric admission for his safety, the safety of others, for medication management and stabilization patient has been taking Risperdal 2 mg b.i.d. since admission he has given verbal permission to talk to both his mother and his nephew Aiden And both report that patient has been making verbal threats to kill the neighbors and some times holding a knife while saying so. Given that patient is psychotic, has been reportedly making homicidal threats while holding a weapon and has no insight, team agreed to petition court for civil commitment for safety and stabilization. despite saying that he does not want medications and does not need them, he has thus far has been taking Risperdal 2 mg b.i.d. He said to the nurse that he figures if he takes it he will get out of here sooner. He remains floridly psychotic however with paranoid, persecutory delusions and auditory hallucinations plan: Q 15 minutes checks for safety continue Risperdal 2 mg b.i.d. this patient has been willing to take it and it has been prescribed in the past continue to seek collateral will order Infectious disease consult at some point As he has been prescribed HIV retroviral medication; mother reports patient has untreated syphilis Greater than 50% of the session was spent on counseling and/or coordination of care Reason for contiued inpatient stay Substantial Risk for: harm to self, harm to others, inability to function, rapid decompensation and med/psych decompensation
[2020-08-10 18:00] VITALS: BP 108/66; PULSE 77; TEMP 36.6
[2020-08-11 06:00] VITALS: BP 106/68; PULSE 58; RESP 18; TEMP 36.3; O2SAT 100
[2020-08-11] MEDS: risperiDONE 2 MG TABLET PO ×2 (08:34→20:47)
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
[2020-08-11 16:30] VITALS: BP 118/58; PULSE 73; TEMP 36.8
[2020-08-12 06:00] VITALS: BP 105/61; PULSE 77; RESP 16; TEMP 36.6; O2SAT 96
[2020-08-12] MEDS: risperiDONE 2 MG TABLET PO ×2 (08:54→20:13)
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
[2020-08-12 16:12] VITALS: BP 122/74; PULSE 71; RESP 18; TEMP 37.2
--- NOTE | 2020-08-12 17:09 | HO.PSYCHPN ---
Subjective Subjective Date of Service: 08/12/20 Reason For Visit: Schizophrenia Interim History: patient lying in bed, smiles at race and sports book writer is approach. Patient maintains that the reason he is here is because he is in a movie and reiterates that does not matter that race and sports book writer does not believe he is acting or and a script or even if race and sports book writer is a real doctor, patient knows that he is in a movie and he knows he has a part to play a which is a continuation of his last admission. Otherwise patient said he slept well, is planning to meet with his mother who is visiting today and has no complaints or requests. Mental Status Exam Mental Status Exam Narrative: Pt is alert and oriented; behavior is cooperative; he is calmly lying in bed; patient is not in distress, wearing casual cloths; mood is described as good and affect constricted; eye contact appropriate; Speech is alexander, but normal rate, volume and prosody and not pressured; no psychomotor agitation/retardation present; thought process is linear and goal directed. Thought content with continued paranoid, persecutory delusions and moderate grandiosity; denies any SI/HI. +AH Patients insight and judgment are impaired Diagnostics Vital Signs (24Hr): Vital Signs - 24 hr 08/12/20 06:00 08/12/20 16:12 Temperature 98 F 99 F Pulse Rate 77 71 Respiratory Rate 16 18 Blood Pressure 105/61 122/74 Pulse Oximetry 96 Body Mass Index 25.0 Labs Results: 08/05/20 06:55 08/05/20 06:55 Medications Medications Current Medications Generic Name Dose Route Start Last Admin Trade Name Freq PRN Reason Stop Dose Admin Acetaminophen 650 mg 08/04/20 20:03 Acetaminophen 325 Mg Tablet PO Q6H PRN Headache/Pain Mild Scale (1-3) Al Hydroxide/Mg Hydroxide 30 ml 08/04/20 20:03 Magnesium Hydrox/Alum Hydrox 30 Ml Oral.Susp PO Q6H PRN Heartburn/Nausea Diphenhydramine HCl 50 mg 08/05/20 10:07 Diphenhydramine Hcl 25 Mg Tablet PO Q4H PRN agitation Haloperidol 5 mg 08/05/20 10:07 Haloperidol 5 Mg Tablet PO Q4H PRN agitation Hydroxyzine HCl 25 mg 08/04/20 20:03 Hydroxyzine Hcl 25 Mg Tablet PO BEDTIME PRN Anxiety Lorazepam 2 mg 08/05/20 10:07 Lorazepam 1 Mg Tablet PO Q4H PRN agitation Magnesium Hydroxide 30 ml 08/04/20 20:03 08/09/20 08:40 Milk Of Magnesia 30 Ml Oral.Susp PO 30 ml DAILY PRN Administration Constipation Risperidone 2 mg 08/05/20 12:55 08/12/20 08:54 Risperidone 2 Mg Tablet PO 2 mg BID SUJATHA Administration Trazodone HCl 50 mg 08/04/20 20:03 Trazodone Hcl 50 Mg Tablet PO BEDTIME PRN Insomnia Allergies Allergies Allergy/AdvReac Type Severity Reaction Status Date / Time No Known Allergies Allergy Verified 08/04/20 20:02 Assessment & Plan Assessment & Plan (1) HIV (human immunodeficiency virus infection): Status: Acute Code(s): B20 - Human immunodeficiency virus [HIV] disease Assessment and Plan: He is documented HIV,hard copy at [facility] on their EMR He has been briefly on Biktarvy He has had CD4 count 249 in past It may be lower now and needs PJP prophylaxis if under 100 (2) Syphilis: Status: Acute Code(s): A53.9 - Syphilis, unspecified Assessment and Plan: Possible neurosyphilis was treated with IV PCN completed 12/26 There is no ocular or hearing symptoms at this time Titer should resolve four fold at least Check titer IMPRESSION: patient is a 54-year-old male with history of psychotic illness who presents for disorganized behavior, threatening behavior and paranoid delusional thinking. patient presents as floridly psychotic and meets criteria for schizophrenia. Patient currently lacks all insight. Crisis note reports his family says he has been making threats regarding his neighbors and has been threatening the family's presence. Patient currently refuses medications and refuses to sign into the hospital. Will continue to work on getting collateral. Will restart medications he was prescribed in the past, Risperdal; undecided about how to approach infectious disease consult for HIV as patient currently denies having HIV at all and has a history of being aggressive. Patient requires psychiatric admission for his safety, the safety of others, for medication management and stabilization patient has been taking Risperdal 2 mg b.i.d. since admission he has given verbal permission to talk to both his mother and his nephew Aiden And both report that patient has been making verbal threats to kill the neighbors and some times holding a knife while saying so. Given that patient is psychotic, has been reportedly making homicidal threats while holding a weapon and has no insight, team agreed to petition court for civil commitment for safety and stabilization. despite saying that he does not want medications and does not need them, he has thus far has been taking Risperdal 2 mg b.i.d. He said to the nurse that he figures if he takes it he will get out of here sooner. He remains floridly psychotic however with paranoid, persecutory delusions and auditory hallucinations; patient continues to lack insight plan: proceed with petition for civil commitment patient on 12 Q 15 minutes checks for safety continue Risperdal 2 mg b.i.d. this patient has been willing to take it and it has been prescribed in the past infectious disease consult see above for recs Greater than 50% of the session was spent on counseling and/or coordination of care Reason for contiued inpatient stay Substantial Risk for: harm to others and med/psych decompensation
[2020-08-12 17:23] LABS: Syphilis Screen Reactive (Nonreactive)
[2020-08-13 06:47] VITALS: BP 143/89; PULSE 81; RESP 16; TEMP 36.8; O2SAT 98
[2020-08-13 07:00] VITALS: BMI 25.4
[2020-08-13] MEDS: risperiDONE 2 MG TABLET PO (08:27)
[2020-08-13 14:56] LABS: Absolute CD3 Count 849 cells/uL (840-3060); Absolute CD4 Count 87 cells/uL (490-1740); Absolute CD8 Count 739 cells/uL (180-1170); Absolute Lymphocytes 1493 cells/uL (850-3900); CD4 CD8 Ratio 0.12 (0.86-5.00); Percent CD3 Cells 57 % (57-85); Percent CD4 Cells 6 % (30-61); Percent CD8 Cells 49 % (12-42)
[2020-08-13] MEDS: Milk of Magnesia 30 ML ORAL.SUSP PO (15:02)
[2020-08-13 16:53] VITALS: BP 109/72; PULSE 68; RESP 18; TEMP 36.5; O2SAT 97
[2020-08-13] MEDS: risperiDONE 3 MG TABLET PO (20:37)
--- NOTE | 2020-08-13 21:35 | P.PNPSI_ITS ---
Subjective Subjective Date of Service: 08/13/20 Reason For Visit: Schizophrenia Interim History: pt lying in bed on approach, fully dressed with cover pulled covers his head. He pulls them back and smiles, asking how fiction and nonfiction prose writer is doing. Pt says he's good and sleeping well, that nothing has changed and he's the same as yesterday. His mother did not show up for a visit yesterday and he says he's not talked with her. Clinical Nursing Coordinator discussed how pt's commercial real estate attorney asked for an independent exam, which pt already knew and asked if pt had any questions about it, to which he said no. Clinical Nursing Coordinator discussed medication; he says he's felt no effect from it one way or the other. Clinical Nursing Coordinator reviewed with patient the risks/side-effects of Risperdal to which patient understood. Clinical Nursing Coordinator said he'd like to increase the dos e to which pt did not object. He did say he remains constipated and would like a laxative; he joked about old fashioned remedies. Pt had no other requests or complaints. Mental Status Exam Mental Status Exam Narrative: Pt is alert and oriented; behavior is cooperative; he is calmly lying in bed; patient is not in distress, wearing casual cloths and hat; mood is described as good and affect more friendly, smiling some; eye contact appropriate; Speech is a little more relaxed; normal rate, volume and prosody and not pressured; no psychomotor agitation/retardation present; thought process is linear and goal directed. Thought content with continued paranoid, persecutory delusions and moderate grandiosity; denies any SI/HI. +AH Patients insight and judgment are impaired Diagnostics Vital Signs (24Hr): Vital Signs - 24 hr 08/13/20 06:47 08/13/20 16:53 Temperature 98.2 F 97.7 F Pulse Rate 81 68 Respiratory Rate 16 18 Blood Pressure 143/89 H 109/72 Pulse Oximetry 98 97 Body Mass Index 25.4 Labs Results: 08/05/20 06:55 08/05/20 06:55 Labs: Laboratory Results - last 48 hr 08/12/20 08/12/20 16:20 16:20 Total Lymphocytes 1493 % CD3 Cells 57 Absolute CD3 Count 849 % CD4 Cells 6 L Absolute CD4 Count 87 L CD4/CD8 Ratio 0.12 L % CD8 Cells 49 H Absolute CD8 Count 739 T.pallidum Ab (EIA) Reactive A Medications Medications Current Medications Generic Name Dose Route Start Last Admin Trade Name Freq PRN Reason Stop Dose Admin Acetaminophen 650 mg 08/04/20 20:03 Acetaminophen 325 Mg Tablet PO Q6H PRN Headache/Pain Mild Scale (1-3) Al Hydroxide/Mg Hydroxide 30 ml 08/04/20 20:03 Magnesium Hydrox/Alum Hydrox 30 Ml Oral.Susp PO Q6H PRN Heartburn/Nausea Diphenhydramine HCl 50 mg 08/05/20 10:07 Diphenhydramine Hcl 25 Mg Tablet PO Q4H PRN agitation Haloperidol 5 mg 08/05/20 10:07 Haloperidol 5 Mg Tablet PO Q4H PRN agitation Hydroxyzine HCl 25 mg 08/04/20 20:03 Hydroxyzine Hcl 25 Mg Tablet PO BEDTIME PRN Anxiety Lorazepam 2 mg 08/05/20 10:07 Lorazepam 1 Mg Tablet PO Q4H PRN agitation Magnesium Hydroxide 30 ml 08/13/20 14:45 08/13/20 15:02 Milk Of Magnesia 30 Ml Oral.Susp PO 30 ml DAILY SUJATHA Administration Risperidone 3 mg 08/13/20 21:00 08/13/20 20:37 Risperidone 3 Mg Tablet PO 3 mg BEDTIME SUJATHA Administration Risperidone 2 mg 08/14/20 09:00 Risperidone 2 Mg Tablet PO DAILY SUJATHA Trazodone HCl 50 mg 08/04/20 20:03 Trazodone Hcl 50 Mg Tablet PO BEDTIME PRN Insomnia Allergies Allergies Allergy/AdvReac Type Severity Reaction Status Date / Time No Known Allergies Allergy Verified 08/04/20 20:02 Assessment & Plan Assessment & Plan (1) HIV (human immunodeficiency virus infection): Status: Acute Code(s): B20 - Human immunodeficiency virus [HIV] disease Assessment and Plan: He is documented HIV,hard copy at [facility] on their EMR He has been briefly on Biktarvy He has had CD4 count 249 in past It may be lower now and needs PJP prophylaxis if under 100 (2) Syphilis: Status: Acute Code(s): A53.9 - Syphilis, unspecified Assessment and Plan: Possible neurosyphilis was treated with IV PCN completed 12/26 There is no ocular or hearing symptoms at this time Titer should resolve four fold at least Check titer (3) Schizophrenia: Qualifiers: Schizophrenia type: paranoid schizophrenia Qualified Code(s): F20.0 - Paranoid schizophrenia Status: Acute Code(s): F20.9 - Schizophrenia, unspecified Assessment and Plan: IMPRESSION: patient is a 54-year-old male with history of psychotic illness who presents for disorganized behavior, threatening behavior and paranoid delusional thinking. patient presents as floridly psychotic and meets criteria for schizophrenia. Patient currently lacks all insight. Crisis note reports his family says he has been making threats regarding his neighbors and has been threatening the family's presence. Patient currently refuses medications and refuses to sign into the hospital. Will continue to work on getting collateral. Will restart medications he was prescribed in the past, Risperdal; undecided about how to approach infectious disease consult for HIV as patient currently denies having HIV at all and has a history of being aggressive. Patient requires psychiatric admission for his safety, the safety of others, for medication management and stabilization patient has been taking Risperdal 2 mg b.i.d. since admission he has given verbal permission to talk to both his mother and his nephew Aiden And both report that patient has been making verbal threats to kill the neighbors and some times holding a knife while saying so. Given that patient is psychotic, has been reportedly making homicidal threats while holding a weapon and has no insight, team agreed to petition court for civil commitment for safety and stabilization. despite saying that he does not want medications and does not need them, he has thus far has been taking Risperdal 2 mg b.i.d. He said to the nurse that he figures if he takes it he will get out of here sooner. He remains floridly psychotic however with paranoid, persecutory delusions and auditory hallucinations; patient continues to lack insight pt remains with psychotic symptoms. However, today 08/13/20, he seems a bit friendlier, smiles some, jokes a little. It's possible (hopeful) that risperdal is having some positive effect. Will raise dose and continue to assess plan: proceed with petition for civil commitment patient on 12 b Q 15 minutes checks for safety increase to Risperdal 2 mg in AM and 3mg at bedtime; this patient has been willing to take it and it has been prescribed in the past; fiction and nonfiction prose writer reviewed risks/side-effects with pt infectious disease consult see above for recs Greater than 50% of the session was spent on counseling and/or coordination of care Reason for contiued inpatient stay Substantial Risk for: harm to others
[2020-08-14 06:00] VITALS: BP 105/69; PULSE 66; RESP 16; TEMP 36.6; O2SAT 98
[2020-08-14] MEDS: risperiDONE 2 MG TABLET PO (08:09)
--- NOTE | 2020-08-14 09:50 | HO.PSYCHPN ---
Subjective Subjective Date of Service: 08/14/20 Reason For Visit: Schizophrenia Subjective Notes: Section 7 Interim History: patient lying in bed with covers pulled over his head, hat on. Pulled off covers and smiles warmly and says jose cruzlo. Patient reports that he is good and sleeping well. He reports continued constipation and asks for a 1 time dose of laxative. Patient said he talked with his mother on the phone yesterday and had a very good conversation. Coining Press Operator discussed patient's social history in more depth as he has become more congenial. Patient reports that he has majored in several subjects including Spanish, mathematics, English in the [employer]. 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 He says he moved to the [facility] from [facility] in 1988, 1st to [place] then to [place] and then to [place] which he really enjoyed since the climate was similar to home. He then moved back here to [place] to be with his mother. Coining Press Operator asked about his experience with the Bridger in his ear through with which he reports he communicates to his company coworkers. He says that has been going on for the past 3-4 years and he is still, today, in communication with them. He says that a staff person walked in and asked why he was talking to himself, which he explained was him communicating with his workers via the virtual Bridger. Patient reports that the bed is still being made hot, and he thinks it is due to some virtual device, but he is not sure. He says that right now it is comfortable. Patient has no complaints and no other requests than mentioned above. Medication Compliance: Yes Side effects from medications: No Attending Groups: No Mental Status Exam Mental Status Exam Narrative: Pt is alert and oriented; behavior is cooperative; he is calmly lying in bed; patient is not in distress, wearing casual cloths and hat; mood is described as good and affect more friendly, smiling some; eye contact appropriate; Speech is more spontaneous and more relaxed; normal rate, volume and prosody and not pressured; no psychomotor agitation/retardation present; thought process is linear and goal directed. Thought content remains with paranoid, persecutory delusions and moderate grandiosity; denies any SI/HI. +AH and patient witnessed self-diaologing by staff; Patients insight and judgment are impaired Diagnostics Vital Signs (24Hr): Vital Signs - 24 hr 08/13/20 16:53 08/14/20 06:00 Temperature 97.7 F 97.8 F Pulse Rate 68 66 Respiratory Rate 18 16 Blood Pressure 109/72 105/69 Pulse Oximetry 97 98 Body Mass Index 25.4 Labs Results: 08/05/20 06:55 08/05/20 06:55 Labs: Laboratory Results - last 48 hr 08/12/20 08/12/20 16:20 16:20 Total Lymphocytes 1493 % CD3 Cells 57 Absolute CD3 Count 849 % CD4 Cells 6 L Absolute CD4 Count 87 L CD4/CD8 Ratio 0.12 L % CD8 Cells 49 H Absolute CD8 Count 739 T.pallidum Ab (EIA) Reactive A Medications Medications Current Medications Generic Name Dose Route Start Last Admin Trade Name Freq PRN Reason Stop Dose Admin Acetaminophen 650 mg 08/04/20 20:03 Acetaminophen 325 Mg Tablet PO Q6H PRN Headache/Pain Mild Scale (1-3) Al Hydroxide/Mg Hydroxide 30 ml 08/04/20 20:03 Magnesium Hydrox/Alum Hydrox 30 Ml Oral.Susp PO Q6H PRN Heartburn/Nausea Diphenhydramine HCl 50 mg 08/05/20 10:07 Diphenhydramine Hcl 25 Mg Tablet PO Q4H PRN agitation Haloperidol 5 mg 08/05/20 10:07 Haloperidol 5 Mg Tablet PO Q4H PRN agitation Hydroxyzine HCl 25 mg 08/04/20 20:03 Hydroxyzine Hcl 25 Mg Tablet PO BEDTIME PRN Anxiety Lorazepam 2 mg 08/05/20 10:07 Lorazepam 1 Mg Tablet PO Q4H PRN agitation Magnesium Hydroxide 30 ml 08/13/20 14:45 08/14/20 08:10 Milk Of Magnesia 30 Ml Oral.Susp PO Not Given DAILY SUJATHA Risperidone 3 mg 08/13/20 21:00 08/13/20 20:37 Risperidone 3 Mg Tablet PO 3 mg BEDTIME SUJATHA Administration Risperidone 2 mg 08/14/20 09:00 08/14/20 08:09 Risperidone 2 Mg Tablet PO 2 mg DAILY SUJATHA Administration Trazodone HCl 50 mg 08/04/20 20:03 Trazodone Hcl 50 Mg Tablet PO BEDTIME PRN Insomnia Allergies Allergies Allergy/AdvReac Type Severity Reaction Status Date / Time No Known Allergies Allergy Verified 06/29/21 20:02 Assessment & Plan Assessment & Plan (1) HIV (human immunodeficiency virus infection): Status: Acute Code(s): B20 - Human immunodeficiency virus [HIV] disease Assessment and Plan: He is documented HIV,hard copy at [facility] on their EMR He has been briefly on Biktarvy He has had CD4 count 249 in past It may be lower now and needs PJP prophylaxis if under 100 (2) Syphilis: Status: Acute Code(s): A53.9 - Syphilis, unspecified Assessment and Plan: Possible neurosyphilis was treated with IV PCN completed 12/26 There is no ocular or hearing symptoms at this time Titer should resolve four fold at least Check titer (3) Schizophrenia: Qualifiers: Schizophrenia type: paranoid schizophrenia Qualified Code(s): F20.0 - Paranoid schizophrenia Status: Acute Code(s): F20.9 - Schizophrenia, unspecified Assessment and Plan: IMPRESSION: patient is a 54-year-old male with history of psychotic illness who presents for disorganized behavior, threatening behavior and paranoid delusional thinking. patient presents as floridly psychotic and meets criteria for schizophrenia. Patient currently lacks all insight. Crisis note reports his family says he has been making threats regarding his neighbors and has been threatening the family's presence. Patient currently refuses medications and refuses to sign into the hospital. Will continue to work on getting collateral. Will restart medications he was prescribed in the past, Risperdal; undecided about how to approach infectious disease consult for HIV as patient currently denies having HIV at all and has a history of being aggressive. Patient requires psychiatric admission for his safety, the safety of others, for medication management and stabilization patient has been taking Risperdal 2 mg b.i.d. since admission he has given verbal permission to talk to both his mother and his nephew Aiden And both report that patient has been making verbal threats to kill the neighbors and some times holding a knife while saying so. Given that patient is psychotic, has been reportedly making homicidal threats while holding a weapon and has no insight, team agreed to petition court for civil commitment for safety and stabilization. despite saying that he does not want medications and does not need them, he has thus far has been taking Risperdal 2 mg b.i.d. He said to the nurse that he figures if he takes it he will get out of here sooner. He remains floridly psychotic however with paranoid, persecutory delusions and auditory hallucinations; patient continues to lack insight pt remains with psychotic symptoms. However, since 08/13/20, he is a bit friendlier, smiles some, jokes a little and easier to engage; staff reports he was out of his room and engaging some with staff. It's possible (hopeful) that risperdal is having some positive effect; however his delusions and AH remain. plan: petition for civil commitment patient on SECTION 7 Q 15 minutes checks for safety on 08/13 increased to Risperdal 2 mg in AM and 3mg at bedtime; patient has been willing to take it and it has been prescribed in the past; sign writer letterer or painter reviewed risks/side-effects with pt infectious disease consult see above for recs Greater than 50% of the session was spent on counseling and/or coordination of care Reason for contiued inpatient stay Substantial Risk for: rapid decompensation
[2020-08-14] MEDS: Milk of Magnesia 30 ML ORAL.SUSP PO (15:47)
[2020-08-14 16:05] VITALS: BP 126/74; PULSE 71; TEMP 37
[2020-08-14] MEDS: risperiDONE 3 MG TABLET PO (20:36)
[2020-08-15 06:49] VITALS: BP 114/65; PULSE 64; RESP 16; O2SAT 97
[2020-08-15] MEDS: Milk of Magnesia 30 ML ORAL.SUSP PO (08:33)
[2020-08-15] MEDS: risperiDONE 2 MG TABLET PO (08:33)
[2020-08-15 16:15] VITALS: BP 117/59; PULSE 80; TEMP 36.8
[2020-08-15] MEDS: risperiDONE 3 MG TABLET PO (20:08)
--- NOTE | 2020-08-15 21:53 | HO.PSYCHPN ---
Subjective Subjective Date of Service: 08/15/20 Reason For Visit: Schizophrenia Interim History: reports he's good says he's still constipated and would like additional laxative. Otherwise pt has no complaints, he's the same; no other requests Surfacer Operator told by nursing that pt was about to take MOM yesterday, but then he looked away, said wait...What did you say [talking to auditory hallucination] and then turned back to nurse saying that no he can't take it. Nursing also reports that Pt told nurse that he is constipated unless virtual colleen lets him defecate. Mental Status Exam Mental Status Exam Narrative: Pt is alert and oriented; behavior is cooperative; he is calmly lying in bed; patient is not in distress, wearing casual cloths and hat; mood is described as good and affect friendly, smiling some; eye contact appropriate; Speech is more spontaneous and more relaxed than before; normal rate, volume and prosody and not pressured; no psychomotor agitation/retardation present; thought process is linear and goal directed. Thought content remains with paranoid, persecutory delusions and moderate grandiosity; denies any SI/HI. +AH and patient witnessed self-diaologing by staff; Patients insight and judgment are impaired Diagnostics Vital Signs (24Hr): Vital Signs - 24 hr 08/15/20 06:49 08/15/20 16:15 Temperature 98.3 F Pulse Rate 64 80 Respiratory Rate 16 Blood Pressure 114/65 117/59 L Pulse Oximetry 97 Body Mass Index 25.4 Labs Results: 08/05/20 06:55 08/05/20 06:55 Labs: Laboratory Results - last 48 hr 08/12/20 16:20 Lymphocyte Subset Cmmnt TNP Medications Medications Current Medications Generic Name Dose Route Start Last Admin Trade Name Freq PRN Reason Stop Dose Admin Acetaminophen 650 mg 08/04/20 20:03 Acetaminophen 325 Mg Tablet PO Q6H PRN Headache/Pain Mild Scale (1-3) Al Hydroxide/Mg Hydroxide 30 ml 08/04/20 20:03 Magnesium Hydrox/Alum Hydrox 30 Ml Oral.Susp PO Q6H PRN Heartburn/Nausea Diphenhydramine HCl 50 mg 08/05/20 10:07 Diphenhydramine Hcl 25 Mg Tablet PO Q4H PRN agitation Haloperidol 5 mg 08/05/20 10:07 Haloperidol 5 Mg Tablet PO Q4H PRN agitation Hydroxyzine HCl 25 mg 08/04/20 20:03 Hydroxyzine Hcl 25 Mg Tablet PO BEDTIME PRN Anxiety Magnesium Hydroxide 30 ml 08/13/20 14:45 08/15/20 08:33 Milk Of Magnesia 30 Ml Oral.Susp PO 30 ml DAILY SUJATHA Administration Risperidone 3 mg 08/13/20 21:00 08/15/20 20:08 Risperidone 3 Mg Tablet PO 3 mg BEDTIME SUJATHA Administration Risperidone 2 mg 08/14/20 09:00 08/15/20 08:33 Risperidone 2 Mg Tablet PO 2 mg DAILY SUJATHA Administration Trazodone HCl 50 mg 08/04/20 20:03 Trazodone Hcl 50 Mg Tablet PO BEDTIME PRN Insomnia Allergies Allergies Allergy/AdvReac Type Severity Reaction Status Date / Time No Known Allergies Allergy Verified 08/04/20 20:02 Assessment & Plan Assessment & Plan (1) HIV (human immunodeficiency virus infection): Status: Acute Code(s): B20 - Human immunodeficiency virus [HIV] disease Assessment and Plan: He is documented HIV,hard copy at [facility] on their EMR He has been briefly on Biktarvy He has had CD4 count 249 in past It may be lower now and needs PJP prophylaxis if under 100 (2) Syphilis: Status: Acute Code(s): A53.9 - Syphilis, unspecified Assessment and Plan: Possible neurosyphilis was treated with IV PCN completed 12/26 There is no ocular or hearing symptoms at this time Titer should resolve four fold at least Check titer (3) Schizophrenia: Qualifiers: Schizophrenia type: paranoid schizophrenia Qualified Code(s): F20.0 - Paranoid schizophrenia Status: Acute Code(s): F20.9 - Schizophrenia, unspecified Assessment and Plan: IMPRESSION: patient is a 54-year-old male with history of psychotic illness who presents for disorganized behavior, threatening behavior and paranoid delusional thinking. patient presents as floridly psychotic and meets criteria for schizophrenia. Patient currently lacks all insight. Crisis note reports his family says he has been making threats regarding his neighbors and has been threatening the family's presence. Patient currently refuses medications and refuses to sign into the hospital. Will continue to work on getting collateral. Will restart medications he was prescribed in the past, Risperdal; undecided about how to approach infectious disease consult for HIV as patient currently denies having HIV at all and has a history of being aggressive. Patient requires psychiatric admission for his safety, the safety of others, for medication management and stabilization patient has been taking Risperdal 2 mg b.i.d. since admission he has given verbal permission to talk to both his mother and his nephew Aiden And both report that patient has been making verbal threats to kill the neighbors and some times holding a knife while saying so. Given that patient is psychotic, has been reportedly making homicidal threats while holding a weapon and has no insight, team agreed to petition court for civil commitment for safety and stabilization. despite saying that he does not want medications and does not need them, he has thus far has been taking Risperdal 2 mg b.i.d. He said to the nurse that he figures if he takes it he will get out of here sooner. He remains floridly psychotic however with paranoid, persecutory delusions and auditory hallucinations; patient continues to lack insight pt remains with psychotic symptoms. However, since 08/13/20, he is a bit friendlier, smiles some, jokes a little and easier to engage; staff reports he was out of his room and engaging some with staff. It's possible (hopeful) that risperdal is having some positive effect; however his delusions and AH remain. plan: petition for civil commitment patient on SECTION 7 Q 15 minutes checks for safety on 08/13 increased to Risperdal 2 mg in AM and 3mg at bedtime; patient has been willing to take it and it has been prescribed in the past; writer technical publications reviewed risks/side-effects with pt infectious disease consult see above for recs Greater than 50% of the session was spent on counseling and/or coordination of care Reason for contiued inpatient stay Substantial Risk for: harm to others and rapid decompensation
[2020-08-16 06:41] VITALS: BP 113/63; PULSE 69; RESP 18; TEMP 36.6; O2SAT 99
[2020-08-16] MEDS: Milk of Magnesia 30 ML ORAL.SUSP PO (08:13)
[2020-08-16] MEDS: risperiDONE 2 MG TABLET PO (08:13)
[2020-08-16] MEDS: polyethylene glycoL 3350 17 GM POWD.PACK PO (08:13)
--- NOTE | 2020-08-16 12:57 | PM.EVENT ---
Event Note Date of Service: 08/16/20 Event Note: CD4 count is 84,need PJP prophylaxis as now meets criteria for AIDS he has positive RPR and will have chronically,LP would be indicated ?capacity to refuse HIV meds and treatment?guardian
--- NOTE | 2020-08-16 12:59 | PM.EVENT ---
Event Note Date of Service: 08/16/20 Event Note: added Bactrim DS daily for PJP prophylaxis needs Biktarvy to survive
[2020-08-16 18:00] VITALS: BP 122/78; PULSE 63; TEMP 36.9
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
[2020-08-16] MEDS: risperiDONE 3 MG TABLET PO (20:25)
[2020-08-17] MEDS: risperiDONE 2 MG TABLET PO (09:05)
[2020-08-17] MEDS: Milk of Magnesia 30 ML ORAL.SUSP PO (09:05)
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
--- NOTE | 2020-08-17 15:44 | P.PNID_ITS ---
Subjective Subjective Date of Service: 08/17/20 Critical Care Time (minutes): 15 Comment: He feels well and is smiling with no complaints Objective Data Labs CBC & Chem 7: 08/05/20 06:55 08/05/20 06:55 Physical Exam Vital Signs: Vital Signs: Last Vital Signs Temp 98.4 F 08/16/20 18:00 Pulse 63 08/16/20 18:00 Resp 18 08/16/20 06:41 BP 122/78 08/16/20 18:00 Pulse Ox 99 08/16/20 06:41 Body Mass Index 25.4 Const: General: cooperative Eyes: General: appearance normal, both eyes and all related structures Resp: Effort & Inspection: normal respiratory effort Cardio: Rate: regular rate Rhythm: regular rhythm GI: Palpation (GI): Soft to palpation and nontender Skin: General skin exam: no rashes or lesions noted Assessment and Plan Assessment and plan (1) HIV (human immunodeficiency virus infection): Problem details: He has low CD4 count and now is happily accepting Biktarvy I would continue and check viral load and CD4 count outpatient after six weeks with outpatient ID providers at [facility] Status: Acute (2) Syphilis: Problem details: RPR pending Await results Status: Acute Time Spent With Patient Time: Total time spent is greater than 50% in coordination of care (as documented) at patient's floor/unit and/or counseling patient: Time with patient: 15 - 24 minutes
[2020-08-17 17:23] VITALS: BP 140/87; PULSE 72; TEMP 36.6
[2020-08-17] MEDS: risperiDONE 3 MG TABLET PO (19:59)
[2020-08-17 20:42] VITALS: BP 131/87; PULSE 73
[2020-08-18 06:00] VITALS: BP 114/75; PULSE 69; RESP 16; TEMP 36.4; O2SAT 97
[2020-08-18] MEDS: risperiDONE 2 MG TABLET PO (08:07)
[2020-08-18] MEDS: Milk of Magnesia 30 ML ORAL.SUSP PO (08:07)
--- NOTE | 2020-08-18 09:04 | P.PNPSI_ITS ---
Subjective Subjective Date of Service: 08/19/20 Reason For Visit: Schizophrenia Interim History: Pt mostly in bed, no interaction with peers or staff. He tells this fiction writer I'm right in every possible way, I don't know why I am in the hospital, I think it was a mistake. Pt denies SI/HI. Per nursing, pt continues to self-dialogue and appears internally preoccupied. He is not caring for self in terms of showering. Review of Systems Review of Systems Yes all other systems are reviewed and are negative Gastrointestinal: Reports change in bowel habits and Reports constipation Mental Status Exam Mental Status Exam Narrative: Appearance: casually groomed, fair hygiene, in NAD Behavior: superficially cooperative Psychomotor: no agitation or retardation noted Speech: clear, normal rate/rhythm/volume, spontaneous TP: single words TC: looking to return home Mood: great Affect:constricted SI:denies HI:denies AH/VH:appears internally preoccupied Delusions:bodyly functions being controlled by colleen Insight/judgment:impaired x 2. Memory/cog: alert, oriented to month, year, not situation. Diagnostics Vital Signs (24Hr): Vital Signs - 24 hr 08/18/20 18:00 08/19/20 06:00 Temperature 98.1 F 98.6 F Pulse Rate 66 69 Respiratory Rate 18 Blood Pressure 118/76 113/77 Pulse Oximetry 99 Body Mass Index 25.4 Labs Results: 08/05/20 06:55 08/05/20 06:55 Medications Medications Current Medications Generic Name Dose Route Start Last Admin Trade Name Freq PRN Reason Stop Dose Admin Acetaminophen 650 mg 08/04/20 20:03 Acetaminophen 325 Mg Tablet PO Q6H PRN Headache/Pain Mild Scale (1-3) Al Hydroxide/Mg Hydroxide 30 ml 08/04/20 20:03 Magnesium Hydrox/Alum Hydrox 30 Ml Oral.Susp PO Q6H PRN Heartburn/Nausea Bictegravir/Emtricitabine/Tenofovir 1 tab 08/17/20 09:00 08/19/20 08:23 Bictegrav/Emtricit/Tenofov Ala 1 Tab Tablet PO 1 tab DAILY SUJATHA Administration Diphenhydramine HCl 50 mg 08/05/20 10:07 Diphenhydramine Hcl 25 Mg Tablet PO Q4H PRN agitation Haloperidol 5 mg 08/05/20 10:07 Haloperidol 5 Mg Tablet PO Q4H PRN agitation Hydroxyzine HCl 25 mg 08/04/20 20:03 Hydroxyzine Hcl 25 Mg Tablet PO BEDTIME PRN Anxiety Magnesium Hydroxide 30 ml 08/13/20 14:45 08/19/20 08:23 Milk Of Magnesia 30 Ml Oral.Susp PO 30 ml DAILY SUJATHA Administration Risperidone 3 mg 08/13/20 21:00 08/18/20 20:23 Risperidone 3 Mg Tablet PO 3 mg BEDTIME SUJATHA Administration Risperidone 2 mg 08/14/20 09:00 08/19/20 08:23 Risperidone 2 Mg Tablet PO 2 mg DAILY SUJATHA Administration Trazodone HCl 50 mg 08/04/20 20:03 Trazodone Hcl 50 Mg Tablet PO BEDTIME PRN Insomnia Trimethoprim/Sulfamethoxazole 1 tab 08/17/20 09:00 08/19/20 08:23 Sulfamethox/Trimeth 800/160 1 Tab Tablet PO 1 tab DAILY SUJATHA Administration Allergies Allergies Allergy/AdvReac Type Severity Reaction Status Date / Time No Known Allergies Allergy Verified 08/04/20 20:02 Assessment & Plan Assessment & Plan (1) HIV (human immunodeficiency virus infection): Status: Acute Code(s): B20 - Human immunodeficiency virus [HIV] disease Assessment and Plan: He is documented HIV,hard copy at [facility] on their EMR He has been briefly on Biktarvy He has had CD4 count 249 in past It may be lower now and needs PJP prophylaxis if under 100 (2) Syphilis: Status: Acute Code(s): A53.9 - Syphilis, unspecified Assessment and Plan: Possible neurosyphilis was treated with IV PCN completed 12/26 There is no ocular or hearing symptoms at this time Titer should resolve four fold at least Check titer Greater than 50% of the session was spent on counseling and/or coordination of care Reason for contiued inpatient stay Substantial Risk for: inability to function
[2020-08-18 18:00] VITALS: BP 118/76; PULSE 66; TEMP 36.7
[2020-08-18] MEDS: risperiDONE 3 MG TABLET PO (20:23)
[2020-08-19 06:00] VITALS: BP 113/77; PULSE 69; RESP 18; TEMP 37; O2SAT 99
[2020-08-19] MEDS: risperiDONE 2 MG TABLET PO (08:23)
[2020-08-19] MEDS: Milk of Magnesia 30 ML ORAL.SUSP PO (08:23)
[2020-08-19] MEDS: Acetaminophen 325 MG TABLET 650 MG PO (15:10)
--- NOTE | 2020-08-19 16:18 | P.PNPSI_ITS ---
Subjective Subjective Date of Service: 08/19/20 Reason For Visit: Schizophrenia Interim History: Met with patient today who was friendly and received designer/writer with a smile and warm hello. Media Law Faculty Member discussed court options. Patient wanted to know specifically what designer/writer was concerned about, and what things designer/writer thought patient was misinterpreting. Media Law Faculty Member explained some of the concerns, s pecifically that he is misinterpreting his belief or experience and coming to the misunderstood conclusion that his neighbors come into his apartment via some virtual port, steal his things and poison his food. Patient maintains that they this is true. Patient however met with his director of market research and then his mother. Afterward, pt agreed to remain on unit and either adjust his medication or take new medication trial for another week and a half and thus hold off on court for the time being. Medication Compliance: Yes Side effects from medications: No Mental Status Exam Mental Status Exam Narrative: no change: Pt is alert and oriented; behavior is cooperative; he is calmly lying in bed; patient is not in distress, wearing casual cloths and hat; mood is described as good and affect friendly, smiling some; eye contact appropriate; Speech is more spontaneous and more relaxed than before; normal rate, volume and prosody and not pressured; no psychomotor agitation/retardation present; thought process is linear and goal directed. Thought content remains with paranoid, persecutory delusions and grandiosity; denies any SI/HI. +AH and patient witnessed self-dialoguing by staff; Patients insight and judgment are impaired Diagnostics Vital Signs (24Hr): Vital Signs - 24 hr 08/18/20 18:00 08/19/20 06:00 Temperature 98.1 F 98.6 F Pulse Rate 66 69 Respiratory Rate 18 Blood Pressure 118/76 113/77 Pulse Oximetry 99 Body Mass Index 25.4 Labs Results: 08/05/20 06:55 08/05/20 06:55 Medications Medications Current Medications Generic Name Dose Route Start Last Admin Trade Name Freq PRN Reason Stop Dose Admin Acetaminophen 650 mg 08/04/20 20:03 08/19/20 15:10 Acetaminophen 325 Mg Tablet PO 650 mg Q6H PRN Administration Headache/Pain Mild Scale (1-3) Al Hydroxide/Mg Hydroxide 30 ml 08/04/20 20:03 Magnesium Hydrox/Alum Hydrox 30 Ml Oral.Susp PO Q6H PRN Heartburn/Nausea Bictegravir/Emtricitabine/Tenofovir 1 tab 08/17/20 09:00 08/19/20 08:23 Bictegrav/Emtricit/Tenofov Ala 1 Tab Tablet PO 1 tab DAILY SUJATHA Administration Diphenhydramine HCl 50 mg 08/05/20 10:07 Diphenhydramine Hcl 25 Mg Tablet PO Q4H PRN agitation Haloperidol 5 mg 08/05/20 10:07 Haloperidol 5 Mg Tablet PO Q4H PRN agitation Hydroxyzine HCl 25 mg 08/04/20 20:03 Hydroxyzine Hcl 25 Mg Tablet PO BEDTIME PRN Anxiety Magnesium Hydroxide 30 ml 08/13/20 14:45 08/19/20 08:23 Milk Of Magnesia 30 Ml Oral.Susp PO 30 ml DAILY SUJATHA Administration Risperidone 2 mg 08/14/20 09:00 08/19/20 08:23 Risperidone 2 Mg Tablet PO 2 mg DAILY SUJATHA Administration Risperidone 4 mg 08/19/20 21:00 Risperidone 2 Mg Tablet PO BEDTIME SUJATHA Trazodone HCl 50 mg 08/04/20 20:03 Trazodone Hcl 50 Mg Tablet PO BEDTIME PRN Insomnia Trimethoprim/Sulfamethoxazole 1 tab 08/17/20 09:00 08/19/20 08:23 Sulfamethox/Trimeth 800/160 1 Tab Tablet PO 1 tab DAILY SUJATHA Administration Allergies Allergies Allergy/AdvReac Type Severity Reaction Status Date / Time No Known Allergies Allergy Verified 08/04/20 20:02 Assessment & Plan Assessment & Plan (1) HIV (human immunodeficiency virus infection): Status: Acute Code(s): B20 - Human immunodeficiency virus [HIV] disease Assessment and Plan: He is documented HIV,hard copy at [facility] on their EMR He has been briefly on Biktarvy He has had CD4 count 249 in past It may be lower now and needs PJP prophylaxis if under 100 (2) Syphilis: Status: Acute Code(s): A53.9 - Syphilis, unspecified Assessment and Plan: Possible neurosyphilis was treated with IV PCN completed 12/26 There is no ocular or hearing symptoms at this time Titer should resolve four fold at least Check titer (3) Schizophrenia: Qualifiers: Schizophrenia type: paranoid schizophrenia Qualified Code(s): F20.0 - Paranoid schizophrenia Status: Acute Code(s): F20.9 - Schizophrenia, unspecified Assessment and Plan: IMPRESSION: patient is a 54-year-old male with history of psychotic illness who presents for disorganized behavior, threatening behavior and paranoid delusional thinking. patient presents as floridly psychotic and meets criteria for schizophrenia. Patient currently lacks all insight. Crisis note reports his family says he has been making threats regarding his neighbors and has been threatening the family's presence. Patient currently refuses medications and refuses to sign into the hospital. Will continue to work on getting collateral. Will restart medications he was prescribed in the past, Risperdal; undecided about how to approach infectious disease consult for HIV as patient currently denies having HIV at all and has a history of being aggressive. Patient requires psychiatric admission for his safety, the safety of others, for medication management and stabilization patient has been taking Risperdal 2 mg b.i.d. since admission he has given verbal permission to talk to both his mother and his nephew Aiden And both report that patient has been making verbal threats to kill the nei ghbors and some times holding a knife while saying so. Given that patient is psychotic, has been reportedly making homicidal threats while holding a weapon and has no insight, team agreed to petition court for civil commitment for safety and stabilization. despite saying that he does not want medications and does not need them, he has thus far has been taking Risperdal 2 mg b.i.d. He said to the nurse that he figures if he takes it he will get out of here sooner. He remains floridly psychotic however with paranoid, persecutory delusions and auditory hallucinations; patient continues to lack insight pt remains with psychotic symptoms of auditory hallucinations, paranoid persecutory delusions and without insight. He is also refusing HIV meds and meds to treat syphilis since he believes someone stole his social security number, and person aided him and the lab result belong to that person. However, since 08/13/20, he has been friendlier, smiles more, jokes a little and is easier to en shaun; staff reports he was out of his room and engaging some with staff. While this medication has helped him be less guarded with staff, his psychotic symptoms remain unchanged. -will increase Risperdal to max dose to see if can be effective, since it has made some mild improvement by lowering patient's suspiciousness -will switch to either Haldol or Abilify if no improvement plan: petition for civil commitment patient on SECTION 7 Q 15 minutes checks for safety on 08/13 increased to Risperdal 2 mg in AM and 3mg at bedtime; on 08/19 increased further to (2mg in AM and) 4mg at bedtime infectious disease consult see above for recs Greater than 50% of the session was spent on counseling and/or coordination of care Reason for contiued inpatient stay Substantial Risk for: harm to others and rapid decompensation
[2020-08-19] MEDS: risperiDONE 2 MG TABLET 4 MG PO (20:55)
[2020-08-19 21:05] VITALS: BP 127/75; PULSE 84; RESP 16; TEMP 36.8; O2SAT 97
[2020-08-20 06:42] VITALS: BP 116/71; PULSE 62; TEMP 36.4; O2SAT 99
[2020-08-20 07:00] VITALS: BMI 19.0
[2020-08-20] MEDS: Milk of Magnesia 30 ML ORAL.SUSP PO (08:31)
[2020-08-20] MEDS: risperiDONE 2 MG TABLET PO (08:31)
[2020-08-20 09:47] LABS: RPR Quantitative Reactive 1:8 (Nonreactive)
[2020-08-20 09:48] LABS: T.Pallidum Particle Agg Test Reactive (Nonreactive)
--- NOTE | 2020-08-20 16:34 | P.PNPSI_ITS ---
Subjective Subjective Date of Service: 08/20/20 Reason For Visit: Schizophrenia Interim History: Patient is in good mood. He expresses concern that someone on the floor above, having some control over him. He agrees with medication management and denies any side-effects from increased rispderdal dose. Mental Status Exam Mental Status Exam Narrative: no change: Pt is alert and oriented; behavior is cooperative; he is calmly lying in bed; patient is not in distress, wearing casual cloths and hat; mood is described as good and affect friendly, smiling some; eye contact appropriate; Speech is normal rate, volume and prosody and not pressured; no psychomotor agitation/retardation present; thought process is linear and goal directed. Thought content remains with paranoid, persecutory delusions and grandiosity; denies any SI/HI. +AH and patient witnessed self-dialoguing by praful ray; Patients insight and judgment are impaired Diagnostics Vital Signs (24Hr): Vital Signs - 24 hr 08/19/20 21:05 08/20/20 06:42 Temperature 98.3 F 97.6 F Pulse Rate 84 62 Respiratory Rate 16 Blood Pressure 127/75 116/71 Pulse Oximetry 97 99 Body Mass Index 19.0 Labs Results: 08/05/20 06:55 08/05/20 06:55 Labs: Laboratory Results - last 48 hr 08/12/20 16:20 RPR Reactive 1:8 H T.pallidum Particle Agg Reactive H Medications Medications Current Medications Generic Name Dose Route Start Last Admin Trade Name Freq PRN Reason Stop Dose Admin Acetaminophen 650 mg 08/04/20 20:03 08/19/20 15:10 Acetaminophen 325 Mg Tablet PO 650 mg Q6H PRN Administration Headache/Pain Mild Scale (1-3) Al Hydroxide/Mg Hydroxide 30 ml 08/04/20 20:03 Magnesium Hydrox/Alum Hydrox 30 Ml Oral.Susp PO Q6H PRN Heartburn/Nausea Bictegravir/Emtricitabine/Tenofovir 1 tab 08/17/20 09:00 08/20/20 08:30 Bictegrav/Emtricit/Tenofov Ala 1 Tab Tablet PO 1 tab DAILY SUJATHA Administration Diphenhydramine HCl 50 mg 08/05/20 10:07 Diphenhydramine Hcl 25 Mg Tablet PO Q4H PRN agitation Haloperidol 5 mg 08/05/20 10:07 Haloperidol 5 Mg Tablet PO Q4H PRN agitation Hydroxyzine HCl 25 mg 08/04/20 20:03 Hydroxyzine Hcl 25 Mg Tablet PO BEDTIME PRN Anxiety Magnesium Hydroxide 30 ml 08/13/20 14:45 08/20/20 08:31 Milk Of Magnesia 30 Ml Oral.Susp PO 30 ml DAILY SUJATHA Administration Risperidone 4 mg 08/19/20 21:00 08/19/20 20:55 Risperidone 2 Mg Tablet PO 4 mg BEDTIME SUJTAHA Administration Risperidone 3 mg 08/21/20 09:00 Risperidone 3 Mg Tablet PO DAILY SUJATHA Trazodone HCl 50 mg 08/04/20 20:03 Trazodone Hcl 50 Mg Tablet PO BEDTIME PRN Insomnia Trimethoprim/Sulfamethoxazole 1 tab 08/17/20 09:00 08/20/20 08:30 Sulfamethox/Trimeth 800/160 1 Tab Tablet PO 1 tab DAILY SUJATHA Administration Allergies Allergies Allergy/AdvReac Type Severity Reaction Status Date / Time No Known Allergies Allergy Verified 08/04/20 20:02 Assessment & Plan Assessment & Plan (1) HIV (human immunodeficiency virus infection): Status: Acute Code(s): B20 - Human immunodeficiency virus [HIV] disease Assessment and Plan: He is documented HIV,hard copy at [facility] on their EMR He has been briefly on Biktarvy He has had CD4 count 249 in past It may be lower now and needs PJP prophylaxis if under 100 (2) Syphilis: Status: Acute Code(s): A53.9 - Syphilis, unspecified Assessment and Plan: Possible neurosyphilis was treated with IV PCN completed 12/26 There is no ocular or hearing symptoms at this time Titer should resolve four fold at least Check titer (3) Schizophrenia: Qualifiers: Schizophrenia type: paranoid schizophrenia Qualified Code(s): F20.0 - Paranoid schizophrenia Status: Acute Code(s): F20.9 - Schizophrenia, unspecified Assessment and Plan: IMPRESSION: patient is a 54-year-old male with history of psychotic illness who presents for disorganized behavior, threatening behavior and paranoid delusional thinking. patient presents as floridly psychotic and meets criteria for schizophrenia. Patient currently lacks all insight. Crisis note reports his family says he has been making threats regarding his neighbors and has been threatening the family's presence. Patient currently refuses medications and refuses to sign into the hospital. Will continue to work on getting collateral. Will restart medications he was prescribed in the past, Risperdal; undecided about how to approach infectious disease consult for HIV as patient currently denies having HIV at all and has a history of being aggressive. Patient requires psychiatric admission for his safety, the safety of others, for medication management and stabilization patient was started on Risperdal 2 mg b.i.d. on admission he has given verbal permission to talk to both his mother and his nephew Aiden And both report that patient has been making verbal threats to kill the neighbors and some times holding a knife while saying so. Given that patient is psychotic, has been reportedly making homicidal threats while holding a weapon and has no insight, team agreed to petition court for civil commitment for safety and stabilization. despite saying that he does not want medications and does not need them, he has thus far has been taking Risperdal 2 mg b.i.d. He said to the nurse that he figures if he takes it he will get out of here sooner. He remains floridly psychotic however with paranoid, persecutory delusions and auditory hallucinations; patient continues to lack insight pt remains with psychotic symptoms of auditory hallucinations, paranoid persecutory delusions and without insight. He is also refusing HIV meds and meds to treat syphilis since he believes someone stole his social security number, and person aided him and the lab result belong to that person. However, since 08/13/20, he has been friendlier, smiles more, jokes a little and is easier to engage; staff reports he was out of his room and engaging some with staff. While this medication has helped him be less guarded with staff, his psychotic symptoms remain unchanged. -will increase Risperdal to max dose to see if can be effective, since it has made some mild improvement by lowering patient's suspiciousness -will switch to either Haldol or Abilify if no improvement plan: on 08/20 INCREASE RISPERDAL TO 3MG AM AND 4MG PM (up from 2mg AM and 4mg pm) If no improvement, will likely try Haldol petition for civil commitment patient on SECTION 7 Q 15 minutes checks for safety infectious disease consult see above for recs Greater than 50% of the session was spent on counseling and/or coordination of care Reason for contiued inpatient stay Substantial Risk for: rapid decompensation
[2020-08-20 16:55] VITALS: BP 134/74; PULSE 80; TEMP 36.4
[2020-08-20] MEDS: risperiDONE 2 MG TABLET 4 MG PO (21:20)
[2020-08-21 06:00] VITALS: BP 111/76; PULSE 72; RESP 18; TEMP 36.5; O2SAT 99
[2020-08-21] MEDS: risperiDONE 3 MG TABLET PO (08:47)
[2020-08-21] MEDS: Milk of Magnesia 30 ML ORAL.SUSP PO (08:48)
--- NOTE | 2020-08-21 17:09 | HO.PSYCHPN ---
Subjective Subjective Date of Service: 08/21/20 Reason For Visit: Schizophrenia Interim History: Patient is pleasant calm and cooperative. Lying on his bed. He remains with paranoid delusions and continues to insist that his upstairs neighbors are spying on him, taking his belongings and food and poisoning his food. Patient was also worried that perhaps there was someone on the floor above his hospital bed and was relieved to know that there are no patients or people on the 6th floor. In casual conversation patient said that his father is the gold prospector of [facility] and in fact the prime ministor of the whole [facility], saying that all the countries have come together and [place] under [place]. Conversely however patient said he now understands that this hospitalization has nothing to do with a movie. At 1st he thought that this hospitalization was a part of a movie that his [employer] was making but he has since realized they were 2 separate things. Mental Status Exam Mental Status Exam Narrative: no change: Pt is alert and oriented; behavior is cooperative; he is calmly lying in bed; patient is not in distress, wearing casual cloths and hat; mood is described as good and affect friendly, smiling some; eye contact appropriate; Speech is normal rate, volume and prosody and not pressured; no psychomotor agitation/retardation present; thought process is linear and goal directed. Thought content remains with paranoid, persecutory delusions and grandiosity; denies any SI/HI. +AH and patient witnessed self-dialoguing by staff; Patients insight and judgment are impaired Diagnostics Vital Signs (24Hr): Vital Signs - 24 hr 08/21/20 06:00 Temperature 97.7 F Pulse Rate 72 Respiratory Rate 18 Blood Pressure 111/76 Pulse Oximetry 99 Body Mass Index 19.0 Labs Results: 08/05/20 06:55 08/05/20 06:55 Labs: Laboratory Results - last 48 hr 08/12/20 16:20 RPR Reactive 1:8 H T.pallidum Particle Agg Reactive H Medications Medications Current Medications Generic Name Dose Route Start Last Admin Trade Name Freq PRN Reason Stop Dose Admin Acetaminophen 650 mg 08/04/20 20:03 08/19/20 15:10 Acetaminophen 325 Mg Tablet PO 650 mg Q6H PRN Administration Headache/Pain Mild Scale (1-3) Al Hydroxide/Mg Hydroxide 30 ml 08/04/20 20:03 Magnesium Hydrox/Alum Hydrox 30 Ml Oral.Susp PO Q6H PRN Heartburn/Nausea Bictegravir/Emtricitabine/Tenofovir 1 tab 08/17/20 09:00 08/21/20 08:46 Bictegrav/Emtricit/Tenofov Ala 1 Tab Tablet PO 1 tab DAILY SUJATHA Administration Diphenhydramine HCl 50 mg 08/05/20 10:07 Diphenhydramine Hcl 25 Mg Tablet PO Q4H PRN agitation Haloperidol 5 mg 08/05/20 10:07 Haloperidol 5 Mg Tablet PO Q4H PRN agitation Hydroxyzine HCl 25 mg 08/04/20 20:03 Hydroxyzine Hcl 25 Mg Tablet PO BEDTIME PRN Anxiety Magnesium Hydroxide 30 ml 08/13/20 14:45 08/21/20 08:48 Milk Of Magnesia 30 Ml Oral.Susp PO 30 ml DAILY SUJATHA Administration Risperidone 4 mg 08/19/20 21:00 08/20/20 21:20 Risperidone 2 Mg Tablet PO 4 mg BEDTIME SUJATHA Administration Risperidone 3 mg 08/21/20 09:00 08/21/20 08:47 Risperidone 3 Mg Tablet PO 3 mg DAILY SUJATHA Administration Trazodone HCl 50 mg 08/04/20 20:03 Trazodone Hcl 50 Mg Tablet PO BEDTIME PRN Insomnia Trimethoprim/Sulfamethoxazole 1 tab 08/17/20 09:00 08/21/20 08:47 Sulfamethox/Trimeth 800/160 1 Tab Tablet PO 1 tab DAILY SUJATHA Administration Allergies Allergies Allergy/AdvReac Type Severity Reaction Status Date / Time No Known Allergies Allergy Verified 08/04/20 20:02 Assessment & Plan Assessment & Plan (1) HIV (human immunodeficiency virus infection): Status: Acute Code(s): B20 - Human immunodeficiency virus [HIV] disease Assessment and Plan: He is documented HIV,hard copy at [facility] on their EMR He has been briefly on Biktarvy He has had CD4 count 249 in past It may be lower now and needs PJP prophylaxis if under 100 (2) Syphilis: Status: Acute Code(s): A53.9 - Syphilis, unspecified Assessment and Plan: Possible neurosyphilis was treated with IV PCN completed 12/26 There is no ocular or hearing symptoms at this time Titer should resolve four fold at least Check titer (3) Schizophrenia: Qualifiers: Schizophrenia type: paranoid schizophrenia Qualified Code(s): F20.0 - Paranoid schizophrenia Status: Acute Code(s): F20.9 - Schizophrenia, unspecified Assessment and Plan: IMPRESSION: patient is a 54-year-old male with history of psychotic illness who presents for disorganized behavior, threatening behavior and paranoid delusional thinking. patient presents as floridly psychotic and meets criteria for schizophrenia. Patient currently lacks all insight. Crisis note reports his family says he has been making threats regarding his neighbors and has been threatening the family's presence. Patient currently refuses medications and refuses to sign into the hospital. Will continue to work on getting collateral. Will restart medications he was prescribed in the past, Risperdal; undecided about how to approach infectious disease consult for HIV as patient currently denies having HIV at all and has a history of being aggressive. Patient requires psychiatric admission for his safety, the safety of others, for medication management and stabilization patient was started on Risperdal 2 mg b.i.d. on admission he has given verbal permission to talk to both his mother and his nephew Aiden And both report that patient has been making verbal threats to kill the neighbors and some times holding a knife while saying so. Given that patient is psychotic, has been reportedly making homicidal threats while holding a weapon and has no insight, team agreed to petition court for civil commitment for safety and stabilization. despite saying that he does not want medications and does not need them, he has thus far has been taking Risperdal 2 mg b.i.d. He said to the nurse that he figures if he takes it he will get out of here sooner. He remains floridly psychotic however with paranoid, persecutory delusions and auditory hallucinations; patient continues to lack insight pt remains with psychotic symptoms of auditory hallucinations, paranoid persecutory delusions and without insight. He is also refusing HIV meds and meds to treat syphilis since he believes someone stole his social security number, and person aided him and the lab result belong to that person. However, since 08/13/20, he has been friendlier, smiles more, jokes a little and is easier to engage; staff reports he was out of his room and engaging some with staff. While this medication has helped him be less guarded with staff, his psychotic symptoms remain unchanged. -increased Risperdal to max dose to see if can be effective, since it has made some mild improvement by lowering patient's suspiciousness -will switch to either Haldol or Abilify if no improvement PLAN: on 08/20 INCREASED RISPERDAL TO 3MG AM AND 4MG PM (up from 2mg AM and 4mg pm) -If no improvement, will likely try Haldol petition for civil commitment patient on SECTION 7 Q 15 minutes checks for safety infectious disease consult see above for recs Greater than 50% of the session was spent on counseling and/or coordination of care Reason for contiued inpatient stay Substantial Risk for: rapid decompensation
[2020-08-21 18:00] VITALS: BP 114/65; PULSE 76; TEMP 36.9
[2020-08-21] MEDS: risperiDONE 2 MG TABLET 4 MG PO (20:17)
[2020-08-22 06:00] VITALS: BP 112/74; PULSE 65; RESP 18; TEMP 36.5; O2SAT 96
[2020-08-22] MEDS: Milk of Magnesia 30 ML ORAL.SUSP PO (08:42)
[2020-08-22] MEDS: risperiDONE 3 MG TABLET PO (08:42)
[2020-08-22 18:00] VITALS: BP 139/86; PULSE 107
--- NOTE | 2020-08-22 19:07 | HO.PSYCHPN ---
Subjective Subjective Date of Service: 08/22/20 Reason For Visit: Schizophrenia Interim History: Pt is in bed, isolative. He thanks tw for checking in with him and is pleasant, superficial but clearly anxious that a new person has presented. He denies sx of concern and then ends our conversation by covering his face with a blanket, asking this publicity writer to return tomorrow. Medication Compliance: Yes Side effects from medications: No Attending Groups: No Review of Systems Psychiatric: Reports anxiety, Reports auditory hallucinations, Reports paranoia and Reports hallucinations Mental Status Exam Mental Status Exam Patient Appearance: Appropriate Patient Orientation: Person and Place Level of Consciousness: Alert Patient Behavior: Appropriate, Talkative, Cooperative, Anxious, Avoidant, Isolative and Good Eye Contact Mood Description: Anxious Affect Description: Anxious Patient Cognition Impaired: Yes Ability to Follow Directions: Good Speech Pattern: Spontaneous Speech Memory Description: Episodic Impaired Hallucinations: Auditory Delusions: Present Thought Process: Distracted Thought Content: positive for [place] Judgement: Fair Diagnostics Vital Signs (24Hr): Vital Signs - 24 hr 08/22/20 06:00 08/22/20 18:00 Temperature 97.7 F Pulse Rate 65 107 H Respiratory Rate 18 Blood Pressure 112/74 139/86 Pulse Oximetry 96 Body Mass Index 19.0 Labs Results: 08/05/20 06:55 08/05/20 06:55 Medications Medications Current Medications Generic Name Dose Route Start Last Admin Trade Name Freq PRN Reason Stop Dose Admin Acetaminophen 650 mg 08/04/20 20:03 08/19/20 15:10 Acetaminophen 325 Mg Tablet PO 650 mg Q6H PRN Administration Headache/Pain Mild Scale (1-3) Al Hydroxide/Mg Hydroxide 30 ml 08/04/20 20:03 Magnesium Hydrox/Alum Hydrox 30 Ml Oral.Susp PO Q6H PRN Heartburn/Nausea Bictegravir/Emtricitabine/Tenofovir 1 tab 08/17/20 09:00 08/22/20 08:42 Bictegrav/Emtricit/Tenofov Ala 1 Tab Tablet PO 1 tab DAILY SUJATHA Administration Diphenhydramine HCl 50 mg 08/05/20 10:07 Diphenhydramine Hcl 25 Mg Tablet PO Q4H PRN agitation Haloperidol 5 mg 08/05/20 10:07 Haloperidol 5 Mg Tablet PO Q4H PRN agitation Hydroxyzine HCl 25 mg 08/04/20 20:03 Hydroxyzine Hcl 25 Mg Tablet PO BEDTIME PRN Anxiety Magnesium Hydroxide 30 ml 08/13/20 14:45 08/22/20 08:42 Milk Of Magnesia 30 Ml Oral.Susp PO 30 ml DAILY SUJATHA Administration Risperidone 4 mg 08/19/20 21:00 08/21/20 20:17 Risperidone 2 Mg Tablet PO 4 mg BEDTIME SUJATHA Administration Risperidone 3 mg 08/21/20 09:00 08/22/20 08:42 Risperidone 3 Mg Tablet PO 3 mg DAILY SUJATAH Administration Trazodone HCl 50 mg 08/04/20 20:03 Trazodone Hcl 50 Mg Tablet PO BEDTIME PRN Insomnia Trimethoprim/Sulfamethoxazole 1 tab 08/17/20 09:00 08/22/20 08:42 Sulfamethox/Trimeth 800/160 1 Tab Tablet PO 1 tab DAILY SUJATHA Administration Allergies Allergies Allergy/AdvReac Type Severity Reaction Status Date / Time No Known Allergies Allergy Verified 08/04/20 20:02 Assessment & Plan Assessment & Plan (1) HIV (human immunodeficiency virus infection): Status: Acute Code(s): B20 - Human immunodeficiency virus [HIV] disease Assessment and Plan: He is documented HIV,hard copy at [facility] on their EMR He has been briefly on Biktarvy He has had CD4 count 249 in past It may be lower now and needs PJP prophylaxis if under 100 (2) Syphilis: Status: Acute Code(s): A53.9 - Syphilis, unspecified Assessment and Plan: Possible neurosyphilis was treated with IV PCN completed 12/26 There is no ocular or hearing symptoms at this time Titer should resolve four fold at least Check titer (3) Schizophrenia: Qualifiers: Schizophrenia type: paranoid schizophrenia Qualified Code(s): F20.0 - Paranoid schizophrenia Status: Acute Code(s): F20.9 - Schizophrenia, unspecified Assessment and Plan: IMPRESSION: patient is a 54-year-old male with history of psychotic illness who presents for disorganized behavior, threatening behavior and paranoid delusional thinking. patient presents as floridly psychotic and meets criteria for schizophrenia. Patient currently lacks all insight. Crisis note reports his family says he has been making threats regarding his neighbors and has been threatening the family's presence. Patient currently refuses medications and refuses to sign into the hospital. Will continue to work on getting collateral. Will restart medications he was prescribed in the past, Risperdal; undecided about how to approach infectious disease consult for HIV as patient currently denies having HIV at all and has a history of being aggressive. Patient requires psychiatric admission for his safety, the safety of others, for medication management and stabilization patient was started on Risperdal 2 mg b.i.d. on admission he has given verbal permission to talk to both his mother and his nephew Aiden And both report that patient has been making verbal threats to kill the neighbors and some times holding a knife while saying so. Given that patient is psychotic, has been reportedly making homicidal threats while holding a weapon and has no insight, team agreed to petition court for civil commitment for safety and stabilization. despite saying that he does not want medications and does not need them, he has thus far has been taking Risperdal 2 mg b.i.d. He said to the nurse that he figures if he takes it he will get out of here sooner. He remains floridly psychotic however with paranoid, persecutory delusions and auditory hallucinations; patient continues to lack insight pt remains with psychotic symptoms of auditory hallucinations, paranoid persecutory delusions and without insight. He is also refusing HIV meds and meds to treat syphilis since he believes someone stole his social security number, and person aided him and the lab result belong to that person. However, since 08/13/20, he has been friendlier, smiles more, jokes a little and is easier to engage; staff reports he was out of his room and engaging some with staff. While this medication has helped him be less guarded with staff, his psychotic symptoms remain unchanged. -increased Risperdal to max dose to see if can be effective, since it has made some mild improvement by lowering patient's suspiciousness -will switch to either Haldol or Abilify if no improvement PLAN: on 08/20 INCREASED RISPERDAL TO 3MG AM AND 4MG PM (up from 2mg AM and 4mg pm) -If no improvement, will likely try Haldol petition for civil commitment patient on SECTION 7 Q 15 minutes checks for safety infectious disease consult see above for recs 08/22/20: Coverage-Continue current plan of care Greater than 50% of the session was spent on counseling and/or coordination of care Reason for contiued inpatient stay Substantial Risk for: harm to self, inability to function, rapid decompensation and med/psych decompensation
[2020-08-22] MEDS: risperiDONE 2 MG TABLET 4 MG PO (21:06)
[2020-08-23 06:00] VITALS: BP 112/73; PULSE 63; RESP 16; TEMP 36.7; O2SAT 99
[2020-08-23] MEDS: risperiDONE 3 MG TABLET PO (07:53)
[2020-08-23] MEDS: Milk of Magnesia 30 ML ORAL.SUSP PO (07:53)
[2020-08-23 17:36] VITALS: BP 125/80; PULSE 70; TEMP 36.7; O2SAT 95
--- NOTE | 2020-08-23 17:59 | P.PNPSI_ITS ---
Subjective Subjective Date of Service: 08/23/20 Reason For Visit: Schizophrenia Interim History: Remains isolative, pleasant upon approach and denies sx of concern. Medication Compliance: Yes Side effects from medications: No Review of Systems Reports behavioral changes Psychiatric: Reports behavioral changes, Reports difficulty concentrating, Reports auditory hallucinations, Reports paranoia and Reports suicidal ideation (denies) Mental Status Exam Mental Status Exam Patient Appearance: Appropriate Patient Orientation: Person, Place and Time Level of Consciousness: Alert Patient Behavior: Cooperative and Good Eye Contact Mood Description: Constricted Affect Description: Constricted Patient Cognition Impaired: No Ability to Follow Directions: Good Speech Pattern: Appropriate and Spontaneous Speech Memory Description: Episodic Impaired Hallucinations: None (denies) Delusions: Paranoid Ideation Thought Process: Distracted Thought Content: positive for [place] Judgement: Fair Diagnostics Vital Signs (24Hr): Vital Signs - 24 hr 08/22/20 18:00 08/23/20 06:00 08/23/20 17:36 Temperature 98.1 F 98.0 F Pulse Rate 107 H 63 70 Respiratory Rate 16 Blood Pressure 139/86 112/73 125/80 Pulse Oximetry 99 95 Body Mass Index 19.0 Labs Results: 08/05/20 06:55 08/05/20 06:55 Medications Medications Current Medications Generic Name Dose Route Start Last Admin Trade Name Freq PRN Reason Stop Dose Admin Acetaminophen 650 mg 08/04/20 20:03 08/19/20 15:10 Acetaminophen 325 Mg Tablet PO 650 mg Q6H PRN Administration Headache/Pain Mild Scale (1-3) Al Hydroxide/Mg Hydroxide 30 ml 08/04/20 20:03 Magnesium Hydrox/Alum Hydrox 30 Ml Oral.Susp PO Q6H PRN Heartburn/Nausea Bictegravir/Emtricitabine/Tenofovir 1 tab 08/17/20 09:00 08/23/20 07:53 Bictegrav/Emtricit/Tenofov Ala 1 Tab Tablet PO 1 tab DAILY SUJATHA Administration Diphenhydramine HCl 50 mg 08/05/20 10:07 Diphenhydramine Hcl 25 Mg Tablet PO Q4H PRN agitation Haloperidol 5 mg 08/05/20 10:07 Haloperidol 5 Mg Tablet PO Q4H PRN agitation Hydroxyzine HCl 25 mg 08/04/20 20:03 Hydroxyzine Hcl 25 Mg Tablet PO BEDTIME PRN Anxiety Magnesium Hydroxide 30 ml 08/13/20 14:45 08/23/20 07:53 Milk Of Magnesia 30 Ml Oral.Susp PO 30 ml DAILY SUJATHA Administration Risperidone 4 mg 08/19/20 21:00 08/22/20 21:06 Risperidone 2 Mg Tablet PO 4 mg BEDTIME SUJATHA Administration Risperidone 3 mg 08/21/20 09:00 08/23/20 07:53 Risperidone 3 Mg Tablet PO 3 mg DAILY SUJATHA Administration Trazodone HCl 50 mg 08/04/20 20:03 Trazodone Hcl 50 Mg Tablet PO BEDTIME PRN Insomnia Trimethoprim/Sulfamethoxazole 1 tab 08/17/20 09:00 08/23/20 07:53 Sulfamethox/Trimeth 800/160 1 Tab Tablet PO 1 tab DAILY SUJATHA Administration Allergies Allergies Allergy/AdvReac Type Severity Reaction Status Date / Time No Known Allergies Allergy Verified 08/04/20 20:02 Assessment & Plan Assessment & Plan (1) HIV (human immunodeficiency virus infection): Status: Acute Code(s): B20 - Human immunodeficiency virus [HIV] disease Assessment and Plan: He is documented HIV,hard copy at [facility] on their EMR He has been briefly on Biktarvy He has had CD4 count 249 in past It may be lower now and needs PJP prophylaxis if under 100 (2) Syphilis: Status: Acute Code(s): A53.9 - Syphilis, unspecified Assessment and Plan: Possible neurosyphilis was treated with IV PCN completed 12/26 There is no ocular or hearing symptoms at this time Titer should resolve four fold at least Check titer (3) Schizophrenia: Qualifiers: Schizophrenia type: paranoid schizophrenia Qualified Code(s): F20.0 - Paranoid schizophrenia Status: Acute Code(s): F20.9 - Schizophrenia, unspecified Assessment and Plan: IMPRESSION: patient is a 54-year-old male with history of psychotic illness who presents for disorganized behavior, threatening behavior and paranoid delusional thinking. patient presents as floridly psychotic and meets criteria for schizophrenia. Patient currently lacks all insight. Crisis note reports his family says he has been making threats regarding his neighbors and has been threatening the family's presence. Patient currently refuses medications and refuses to sign into the hospital. Will continue to work on getting collateral. Will restart medications he was prescribed in the past, Risperdal; undecided about how to colleen chirinos infectious disease consult for HIV as patient currently denies having HIV at all and has a history of being aggressive. Patient requires psychiatric admission for his safety, the safety of others, for medication management and stabilization patient was started on Risperdal 2 mg b.i.d. on admission he has given verbal permission to talk to both his mother and his nephew Aiden And both report that patient has been making verbal threats to kill the neighbors and some times holding a knife while saying so. Given that patient is psychotic, has been reportedly making homicidal threats while holding a weapon and has no insight, team agreed to petition court for civil commitment for saf ety and stabilization. despite saying that he does not want medications and does not need them, he has thus far has been taking Risperdal 2 mg b.i.d. He said to the nurse that he figures if he takes it he will get out of here sooner. He remains floridly psychotic however with paranoid, persecutory delusions and auditory hallucinations; patient continues to lack insight pt remains with psychotic symptoms of auditory hallucinations, paranoid persecutory delusions and without insight. He is also refusing HIV meds and meds to treat syphilis since he believes someone stole his social security number, and person aided him and the lab result belong to that person. However, since 08/13/20, he has been friendlier, smiles more, jokes a little and is easier to engage; staff reports he was out of his room and engaging some with staff. While this medication has helped him be less guarded with staff, his psychotic symptoms remain unchanged. -increased Risperdal to max dose to see if can be effective, since it has made some mild improvement by lowering patient's suspiciousness -will switch to either Haldol or Abilify if no improvement PLAN: on 08/20 INCREASED RISPERDAL TO 3MG AM AND 4MG PM (up from 2mg AM and 4mg pm) -If no improvement, will likely try Haldol petition for civil commitment patient on SECTION 7 Q 15 minutes checks for safety infectious disease consult see above for recs 08/22/20: Coverage-Continue current plan of care 08/23/20: Coverage-Continue current plan of care. Greater than 50% of the session was spent on counseling and/or coordination of care Reason for contiued inpatient stay Substantial Risk for: rapid decompensation
[2020-08-23] MEDS: risperiDONE 2 MG TABLET 4 MG PO (20:41)
[2020-08-24 06:00] VITALS: BP 136/81; PULSE 73; RESP 16; TEMP 36.6; O2SAT 96
[2020-08-24] MEDS: Milk of Magnesia 30 ML ORAL.SUSP PO (08:36)
[2020-08-24] MEDS: risperiDONE 3 MG TABLET PO (08:37)
--- NOTE | 2020-08-24 12:37 | P.PNPSI_ITS ---
Subjective Subjective Date of Service: 08/24/20 Reason For Visit: Schizophrenia Interim History: pt reports he is feeling well, no physical complaints, mood OK, getting along with others, eating and sleeping well. he has no requests for MD. per staff, not attending groups. court 09/03. pleasant and kind. in bed under his blanket most of the time. grandiose delusions. med-compliant. more visible than previously, however. sleeping well. Mental Status Exam Mental Status Exam Narrative: under covers, only head visible. appropriately groomed. cooperative with interview. no PMA/PMR. speech nkl in rate, amount, loudness, tone, latency. thoughts linear and logical. affect flexible, normo-intense, non- labile. no SI/HI/AVH expressed. Diagnostics Vital Signs (24Hr): Vital Signs - 24 hr 08/23/20 17:36 08/24/20 06:00 Temperature 98.0 F 97.9 F Pulse Rate 70 73 Respiratory Rate 16 Blood Pressure 125/80 136/81 Pulse Oximetry 95 96 Body Mass Index 19.0 Labs Results: 08/05/20 06:55 08/05/20 06:55 Medications Medications Current Medications Generic Name Dose Route Start Last Admin Trade Name Freq PRN Reason Stop Dose Admin Acetaminophen 650 mg 08/04/20 20:03 08/19/20 15:10 Acetaminophen 325 Mg Tablet PO 650 mg Q6H PRN Administration Headache/Pain Mild Scale (1-3) Al Hydroxide/Mg Hydroxide 30 ml 08/04/20 20:03 Magnesium Hydrox/Alum Hydrox 30 Ml Oral.Susp PO Q6H PRN Heartburn/Nausea Bictegravir/Emtricitabine/Tenofovir 1 tab 08/17/20 09:00 08/24/20 08:37 Bictegrav/Emtricit/Tenofov Ala 1 Tab Tablet PO 1 tab DAILY SUJATHA Administration Diphenhydramine HCl 50 mg 08/05/20 10:07 Diphenhydramine Hcl 25 Mg Tablet PO Q4H PRN agitation Haloperidol 5 mg 08/05/20 10:07 Haloperidol 5 Mg Tablet PO Q4H PRN agitation Hydroxyzine HCl 25 mg 08/04/20 20:03 Hydroxyzine Hcl 25 Mg Tablet PO BEDTIME PRN Anxiety Magnesium Hydroxide 30 ml 08/13/20 14:45 08/24/20 08:36 Milk Of Magnesia 30 Ml Oral.Susp PO 30 ml DAILY SUJATHA Administration Risperidone 4 mg 08/19/20 21:00 08/23/20 20:41 Risperidone 2 Mg Tablet PO 4 mg BEDTIME SUJATHA Administration Risperidone 3 mg 08/21/20 09:00 08/24/20 08:37 Risperidone 3 Mg Tablet PO 3 mg DAILY SUJATHA Administration Trazodone HCl 50 mg 08/04/20 20:03 Trazodone Hcl 50 Mg Tablet PO BEDTIME PRN Insomnia Allergies Allergies Allergy/AdvReac Type Severity Reaction Status Date / Time No Known Allergies Allergy Verified 08/04/20 20:02 Assessment & Plan Assessment & Plan (1) HIV (human immunodeficiency virus infection): Status: Acute Code(s): B20 - Human immunodeficiency virus [HIV] disease Assessment and Plan: He is documented HIV,hard copy at [facility] on their EMR He has been briefly on Biktarvy He has had CD4 count 249 in past It may be lower now and needs PJP prophylaxis if under 100 (2) Syphilis: Status: Acute Code(s): A53.9 - Syphilis, unspecified Assessment and Plan: Possible neurosyphilis was treated with IV PCN completed 12/26 There is no ocular or hearing symptoms at this time Titer should resolve four fold at least Check titer (3) Schizophrenia: Qualifiers: Schizophrenia type: paranoid schizophrenia Qualified Code(s): F20.0 - Paranoid schizophrenia Status: Acute Code(s): F20.9 - Schizophrenia, unspecified Assessment and Plan: IMPRESSION: patient is a 54-year-old male with history of psychotic illness who presents for disorganized behavior, threatening behavior and paranoid delusional thinking. patient presents as floridly psychotic and meets criteria for schizophrenia. P atient currently lacks all insight. Crisis note reports his family says he has been making threats regarding his neighbors and has been threatening the family's presence. Patient currently refuses medications and refuses to sign into the hospital. Will continue to work on getting collateral. Will restart medications he was prescribed in the past, Risperdal; undecided about how to approach infectious disease consult for HIV as patient currently denies having HIV at all and has a history of being aggressive. Patient requires psychiatric admission for his safety, the safety of others, for medication management and stabilization patient was started on Risperdal 2 mg b.i.d. on admission he has given verbal permission to talk to both his mother and his nephew Aiden And both report that patient has been making verbal threats to kill the neighbors and some times holding a knife while saying so. Given that patient is psychotic, has been reportedly making homicidal threats while holding a weapon and has no insight, team agreed to petition court for civil commitment for safety and stabilization. despite saying that he does not want medications and does not need them, he has thus far has been taking Risperdal 2 mg b.i.d. He said to the nurse that he figures if he takes it he will get out of here sooner. He remains floridly psychotic however with paranoid, persecutory delusions and auditory hallucinations; patient continues to lack insight pt remains with psychotic symptoms of auditory hallucinations, paranoid persecutory delusions and without insight. He is also refusing HIV meds and meds to treat syphilis since he believes someone stole his social security number, and person aided him and the lab result belong to that person. However, since 08/13/20, he has been friendlier, smiles more, jokes a little and is easier to engage; staff reports he was out of his room and engaging some with staff. While this medication has helped him be less guarded with staff, his psychotic symptoms remain unchanged. -increased Risperdal to max dose to see if can be effective, since it has made some mild improvement by lowering patient's suspiciousness -will switch to either Haldol or Abilify if no improvement PLAN: on 08/20 INCREASED RISPERDAL TO 3MG AM AND 4MG PM (up from 2mg AM and 4mg pm) -If no improvement, will likely try Haldol petition for civil commitment patient on SECTION 7 Q 15 minutes checks for safety infectious disease consult see above for recs 08/22/20: Coverage-Continue current plan of care 08/23/20: Coverage-Continue current plan of care. 08/24/20: pleasant, calm. continue current mgmt. Greater than 50% of the session was spent on counseling and/or coordination of care Reason for contiued inpatient stay Substantial Risk for: harm to others, inability to function and rapid decompensation
[2020-08-24 16:55] VITALS: BP 131/86; PULSE 68; TEMP 36.3
[2020-08-24] MEDS: risperiDONE 2 MG TABLET 4 MG PO (20:03)
[2020-08-25 06:50] VITALS: BP 131/75; PULSE 73; RESP 14; TEMP 36.5; O2SAT 97
[2020-08-25] MEDS: Milk of Magnesia 30 ML ORAL.SUSP PO (08:26)
[2020-08-25] MEDS: risperiDONE 3 MG TABLET PO (08:26)
--- NOTE | 2020-08-25 13:41 | HO.PSYCHPN ---
Subjective Subjective Date of Service: 08/25/20 Reason For Visit: Schizophrenia Interim History: pt reports he is feeling well, no physical complaints, mood OK, getting along with others, eating and sleeping well. he has no requests for MD. MD maoaches VICENTE for pt, and he agrees. he is informed side effect profile is the same as PO medication except for IM shot-associated additions. pt agrees to start sustenna. Mental Status Exam Mental Status Exam Narrative: under covers, only head visible. appropriately groomed. cooperative with interview. no PMA/PMR. speech nml in rate, amount, loudness, tone, latency. thoughts linear and logical. affect flexible, normo-intense, non-labile. no SI/HI/AVH expressed. Diagnostics Vital Signs (24Hr): Vital Signs - 24 hr 08/24/20 16:55 08/25/20 06:50 Temperature 97.4 F 97.7 F Pulse Rate 68 73 Respiratory Rate 14 Blood Pressure 131/86 131/75 Pulse Oximetry 97 Body Mass Index 19.0 Labs Results: 08/05/20 06:55 08/05/20 06:55 Medications Medications Current Medications Generic Name Dose Route Start Last Admin Trade Name Freq PRN Reason Stop Dose Admin Acetaminophen 650 mg 08/04/20 20:03 08/19/20 15:10 Acetaminophen 325 Mg Tablet PO 650 mg Q6H PRN Administration Headache/Pain Mild Scale (1-3) Al Hydroxide/Mg Hydroxide 30 ml 08/04/20 20:03 Magnesium Hydrox/Alum Hydrox 30 Ml Oral.Susp PO Q6H PRN Heartburn/Nausea Bictegravir/Emtricitabine/Tenofovir 1 tab 08/17/20 09:00 08/25/20 08:26 Bictegrav/Emtricit/Tenofov Ala 1 Tab Tablet PO 1 tab DAILY SUJATHA Administration Diphenhydramine HCl 50 mg 08/05/20 10:07 Diphenhydramine Hcl 25 Mg Tablet PO Q4H PRN agitation Haloperidol 5 mg 08/05/20 10:07 Haloperidol 5 Mg Tablet PO Q4H PRN agitation Hydroxyzine HCl 25 mg 08/04/20 20:03 Hydroxyzine Hcl 25 Mg Tablet PO BEDTIME PRN Anxiety Magnesium Hydroxide 30 ml 08/13/20 14:45 08/25/20 08:26 Milk Of Magnesia 30 Ml Oral.Susp PO 30 ml DAILY SUJATHA Administration Paliperidone Palmitate 234 mg 08/29/20 13:39 Paliperidone Palmitate 234 Mg/1.5 Ml Syringe IM 08/29/20 13:40 ONCE ONE Paliperidone Palmitate 156 mg 08/29/20 14:40 Paliperidone Palmitate 156 Mg/Ml Syringe IM 08/29/20 14:41 ONCE ONE Trazodone HCl 50 mg 08/04/20 20:03 Trazodone Hcl 50 Mg Tablet PO BEDTIME PRN Insomnia Allergies Allergies Allergy/AdvReac Type Severity Reaction Status Date / Time No Known Allergies Allergy Verified 08/04/20 20:02 Assessment & Plan Assessment & Plan (1) HIV (human immunodeficiency virus infection): Status: Acute Code(s): B20 - Human immunodeficiency virus [HIV] disease Assessment and Plan: He is documented HIV,hard copy at [facility] on their EMR He has been briefly on Biktarvy He has had CD4 count 249 in past It may be lower now and needs PJP prophylaxis if under 100 (2) Syphilis: Status: Acute Code(s): A53.9 - Syphilis, unspecified Assessment and Plan: Possible neurosyphilis was treated with IV PCN completed 12/26 There is no ocular or hearing symptoms at this time Titer should resolve four fold at least Check titer (3) Schizophrenia: Qualifiers: Schizophrenia type: paranoid schizophrenia Qualified Code(s): F20.0 - Paranoid schizophrenia Status: Acute Code(s): F20.9 - Schizophrenia, unspecified Assessment and Plan: IMPRESSION: patient is a 54-year-old male with history of psychotic illness who presents for disorganized behavior, threatening behavior and paranoid delusional thinking. patient presents as floridly psychotic and meets criteria for schizophrenia. Patient currently lacks all insight. Crisis note reports his family says he has been making threats regarding his neighbors and has been threatening the family's presence. Patient currently refuses medications and refuses to sign into the hospital. Will continue to work on getting collateral. Will restart medications he was prescribed in the past, Risperdal; undecided about how to approach infectious disease consult for HIV as patient currently denies having HIV at all and has a history of being aggressive. Patient requires psychiatric admission for his safety, the safety of others, for medication management and stabilization patient was started on Risperdal 2 mg b.i.d. on admission he has given verbal permission to talk to both his mother and his nephew Aiden And both report that patient has been making verbal threats to kill the neighbors and some times holding a knife while saying so. Given that patient is psychotic, has been reportedly making homicidal threats while holding a weapon and has no insight, team agreed to petition court for civil commitment for safety and stabilization. despite saying that he does not want medications and does not need them, he has thus far has been taking Risperdal 2 mg b.i.d. He said to the nurse that he figures if he takes it he will get out of here sooner. He remains floridly psychotic however with paranoid, persecutory delusions and auditory hallucinations; patient continues to lack insight pt remains with psychotic symptoms of auditory hallucinations, paranoid persecutory delusions and without insight. He is also refusing HIV meds and meds to treat syphilis since he believes someone stole his social security number, and person aided him and the lab result belong to that person. However, since 08/13/20, he has been friendlier, smiles more, jokes a little and is easier to engage; staff reports he was out of his room and engaging some with staff. has been med-compliant since at least 08/16. remains calm, friendly. PLAN: -risperidone increased to 7 mg daily; pt agreed to VICENTE 08/25 so PO risperidone DCed and invega sustenna 234 mg today and 156 mg in 4 days ordered. petition for civil commitment patient on SECTION 7 Q 15 minutes checks for safety infectious disease consult see above for recs Greater than 50% of the session was spent on counseling and/or coordination of care Reason for contiued inpatient stay Substantial Risk for: harm to others, inability to function and rapid decompensation
[2020-08-25] MEDS: Paliperidone Palmitate 234 MG/1.5 ML SYRINGE IM (15:12)
[2020-08-25 17:00] VITALS: BP 123/66; PULSE 71; TEMP 36.6
[2020-08-26] MEDS: Milk of Magnesia 30 ML ORAL.SUSP PO (08:11)
[2020-08-26 08:24] VITALS: BP 110/71; PULSE 62; RESP 16; TEMP 36.8; O2SAT 99
--- NOTE | 2020-08-26 10:15 | P.PNPSI_ITS ---
Subjective Subjective Date of Service: 08/26/20 Reason For Visit: Schizophrenia Interim History: pt reports he is feeling well, no physical complaints aside from some soreness at the injection site from yesterday. mood OK, getting along with others, eating and sleeping well. he has no requests for MD. reviewed sustenna schedule, to get one booster on monday and then a maintenance in jection monthly thereafter. pt wondering where he will get the shot after discharge, informed it depends where he gets his mental health care and that SW will help sort that out with him. he expressed understanding and gratitude for his care here. Mental Status Exam Mental Status Exam Narrative: seated on bed, appropriately dressed and groomed. cooperative with interview. no PMA/PMR. speech nml in rate, amount, loudness, tone, latency. thoughts linear and logical. affect flexible, full-range, normo-intense, non- labile. no SI/HI/AVH expressed. Diagnostics Vital Signs (24Hr): Vital Signs - 24 hr 08/25/20 17:00 08/26/20 08:24 Temperature 97.8 F 98.2 F Pulse Rate 71 62 Respiratory Rate 16 Blood Pressure 123/66 110/71 Pulse Oximetry 99 Body Mass Index 19.0 Labs Results: 08/05/20 06:55 08/05/20 06:55 Medications Medications Current Medications Generic Name Dose Route Start Last Admin Trade Name Freq PRN Reason Stop Dose Admin Acetaminophen 650 mg 08/04/20 20:03 08/19/20 15:10 Acetaminophen 325 Mg Tablet PO 650 mg Q6H PRN Administration Headache/Pain Mild Scale (1-3) Al Hydroxide/Mg Hydroxide 30 ml 08/04/20 20:03 Magnesium Hydrox/Alum Hydrox 30 Ml Oral.Susp PO Q6H PRN Heartburn/Nausea Bictegravir/Emtricitabine/Tenofovir 1 tab 08/17/20 09:00 08/26/20 08:11 Bictegrav/Emtricit/Tenofov Ala 1 Tab Tablet PO 1 tab DAILY SUJATHA Administration Diphenhydramine HCl 50 mg 08/05/20 10:07 Diphenhydramine Hcl 25 Mg Tablet PO Q4H PRN agitation Haloperidol 5 mg 08/05/20 10:07 Haloperidol 5 Mg Tablet PO Q4H PRN agitation Hydroxyzine HCl 25 mg 08/04/20 20:03 Hydroxyzine Hcl 25 Mg Tablet PO BEDTIME PRN Anxiety Magnesium Hydroxide 30 ml 08/13/20 14:45 08/26/20 08:11 Milk Of Magnesia 30 Ml Oral.Susp PO 30 ml DAILY SUJATHA Administration Paliperidone Palmitate 156 mg 08/29/20 14:00 Paliperidone Palmitate 156 Mg/Ml Syringe IM 08/29/20 14:01 ONCE ONE Trazodone HCl 50 mg 08/04/20 20:03 Trazodone Hcl 50 Mg Tablet PO BEDTIME PRN Insomnia Allergies Allergies Allergy/AdvReac Type Severity Reaction Status Date / Time No Known Allergies Allergy Verified 08/04/20 20:02 Assessment & Plan Assessment & Plan (1) HIV (human immunodeficiency virus infection): Status: Acute Code(s): B20 - Human immunodeficiency virus [HIV] disease Assessment and Plan: He is documented HIV,hard copy at [facility] on their EMR He has been briefly on Biktarvy He has had CD4 count 249 in past It may be lower now and needs PJP prophylaxis if under 100 (2) Syphilis: Status: Acute Code(s): A53.9 - Syphilis, unspecified Assessment and Plan: Possible neurosyphilis was treated with IV PCN completed 12/26 There is no ocular or hearing symptoms at this time Titer should resolve four fold at least Check titer (3) Schizophrenia: Qualifiers: Schizophrenia type: paranoid schizophrenia Qualified Code(s): F20.0 - Paranoid schizophrenia Status: Acute Code(s): F20.9 - Schizophrenia, unspecified Assessment and Plan: IMPRESSION: patient is a 54-year-old male with history of psychotic illness who presented for disorganized behavior, threatening behavior and paranoid delusional thinkin g. patient presented as floridly psychotic and met criteria for schizophrenia. at admission patient lacked all insight. Crisis note reports his family said he had been making threats regarding his neighbors and had been threatening the family's presence. at admission Patient refused medications and refused to sign into the hospital. restarted medications he was prescribed in the past, Risperdal. patient was started on Risperdal 2 mg b.i.d. on admission he gave verbal permission to talk to both his mother and his nephew Aiden both reported that patient had been making verbal threats to kill the neighbors and some times holding a knife while saying so. Given that patient was psychotic, had been reportedly making homicidal threats while holding a weapon and had no insight, team agreed to petition court for civil commitment for safety and stabilization. despite saying that he does not want medications and does not need them, he has thus far has been taking Risperdal PO. since 08/13/20, he has been friendlier, smiles more, jokes a little and is easier to engage; staff reports he was out of his room and engaging some with staff. has been med-compliant since at least 08/16. remains calm, friendly. PLAN: -risperidone increased to 7 mg daily; then pt agreed to VICENTE 08/25 so PO risperidone DCed and invega sustenna 234 mg given 08/25 and 156 mg ordered for 08/29. petition for civil commitment patient on SECTION 7 Q 15 minutes checks for safety infectious disease consult see above for recs Greater than 50% of the session was spent on counseling and/or coordination of care Reason for contiued inpatient stay Substantial Risk for: harm to others, inability to function and rapid d ecompensation
[2020-08-26 18:00] VITALS: BP 134/68; RESP 16; TEMP 36.9; O2SAT 99
[2020-08-26] MEDS: Acetaminophen 325 MG TABLET 650 MG PO (22:05)
[2020-08-27 06:00] VITALS: BP 113/75; PULSE 67; TEMP 36.8; O2SAT 96
[2020-08-27 07:00] VITALS: BMI 25.9
[2020-08-27] MEDS: Milk of Magnesia 30 ML ORAL.SUSP PO (07:57)
--- NOTE | 2020-08-27 11:29 | P.PNPSI_ITS ---
Subjective Subjective Date of Service: 08/27/20 Reason For Visit: Schizophrenia Interim History: pt reports he is feeling well, no physical complaints. mood OK, getting along with others, eating and sleeping well. he has no requests for MD. reviewed sustenna schedule, to get one booster on monday and then a maintenance injection monthly thereafter. pt found seated on the edge of his bed reading a [employer] magazine about the [employer]. he reports attending art groups thrice daily and was encouraged to attend all available groups. asking about discharge, when it will be. states he spoke with hismother, with whom he lives, a couple of days ago, and she supported his c oming home. Mental Status Exam Mental Status Exam Narrative: seated on bed, appropriately dressed and groomed. cooperative with interview. no PMA/PMR. speech nml in rate, amount, loudness, tone, latency. thoughts linear and logical. affect flexible, full-range, normo-intense, non- labile. no SI/HI/AVH expressed. Diagnostics Vital Signs (24Hr): Vital Signs - 24 hr 08/26/20 18:00 08/27/20 06:00 Temperature 98.4 F 98.2 F Pulse Rate 67 Respiratory Rate 16 Blood Pressure 134/68 113/75 Pulse Oximetry 99 96 Body Mass Index 19.0 Labs Results: 08/05/20 06:55 08/05/20 06:55 Medications Medications Current Medications Generic Name Dose Route Start Last Admin Trade Name Freq PRN Reason Stop Dose Admin Acetaminophen 650 mg 08/04/20 20:03 08/26/20 22:05 Acetaminophen 325 Mg Tablet PO 650 mg Q6H PRN Administration Headache/Pain Mild Scale (1-3) Al Hydroxide/Mg Hydroxide 30 ml 08/04/20 20:03 Magnesium Hydrox/Alum Hydrox 30 Ml Oral.Susp PO Q6H PRN Heartburn/Nausea Bictegravir/Emtricitabine/Tenofovir 1 tab 08/17/20 09:00 08/27/20 07:56 Bictegrav/Emtricit/Tenofov Ala 1 Tab Tablet PO 1 tab DAILY SUJATHA Administration Diphenhydramine HCl 50 mg 08/05/20 10:07 Diphenhydramine Hcl 25 Mg Tablet PO Q4H PRN agitation Haloperidol 5 mg 08/05/20 10:07 Haloperidol 5 Mg Tablet PO Q4H PRN agitation Hydroxyzine HCl 25 mg 08/04/20 20:03 Hydroxyzine Hcl 25 Mg Tablet PO BEDTIME PRN Anxiety Magnesium Hydroxide 30 ml 08/13/20 14:45 08/27/20 07:57 Milk Of Magnesia 30 Ml Oral.Susp PO 30 ml DAILY SUJATHA Administration Paliperidone Palmitate 156 mg 08/29/20 14:00 Paliperidone Palmitate 156 Mg/Ml Syringe IM 08/29/20 14:01 ONCE ONE Trazodone HCl 50 mg 08/04/20 20:03 Trazodone Hcl 50 Mg Tablet PO BEDTIME PRN Insomnia Allergies Allergies Allergy/AdvReac Type Severity Reaction Status Date / Time No Known Allergies Allergy Verified 08/04/20 20:02 Assessment & Plan Assessment & Plan (1) HIV (human immunodeficiency virus infection): Status: Acute Code(s): B20 - Human immunodeficiency virus [HIV] disease Assessment and Plan: He is documented HIV,hard copy at [facility] on their EMR He has been briefly on Biktarvy He has had CD4 count 249 in past It may be lower now and needs PJP prophylaxis if under 100 (2) Syphilis: Status: Acute Code(s): A53.9 - Syphilis, unspecified Assessment and Plan: Possible neurosyphilis was treated with IV PCN completed 12/26 There is no ocular or hearing symptoms at this time Titer should resolve four fold at least Check titer (3) Schizophrenia: Qualifiers: Schizophrenia type: paranoid schizophrenia Qualified Code(s): F20.0 - Paranoid schizophrenia Status: Acute Code(s): F20.9 - Schizophrenia, unspecified Assessment and Plan: IMPRESSION: patient is a 54-year-old male with history of psychotic illness who presented for disorganized behavior, threatening behavior and paranoid delusional thinking. patient presented as floridly psychotic and met criteria for schizophrenia. at admission patient lacked all insight. Crisis note reports his family said he had been making threats regarding his neighbors and had been threatening the family's presence. at admission Patient refused medications and refused to sign into the hospital. restarted medications he was prescribed in the past, Risperdal. patient was started on Risperdal 2 mg b.i.d. on admission he gave verbal permission to talk to both his mother and his nephew Aiden both reported that patient had been making verbal threats to kill the neighbors and some times holding a knife while saying so. Given that patient was psychotic, had been reportedly making homicidal threats while holding a weapon and had no insight, team agreed to petition court for civil commitment for safety and stabilization. despite saying that he does not want medications and does not need them, he has thus far has been taking Risperdal PO. since 08/13/20, he has been friendlier, smiles more, jokes a little and is easier to engage; staff reports he was out of his room and engaging some with staff. has been med-compliant since at least 08/16. remains calm, friendly. PLAN: -risperidone increased to 7 mg daily; then pt agreed to VICENTE 08/25 so PO risperidone DCed and invega sustenna 234 mg given 08/25 and 156 mg ordered for 08/29. patient on SECTION 7 Q 15 minutes checks for safety infectious disease consult see above for recs plan to DC early next week, rescind commitment petition. Greater than 50% of the session was spent on counseling and/or coordination of care Reason for contiued inpatient stay Substantial Risk for: harm to others, inability to function and rapid decompensation
[2020-08-27 18:25] VITALS: BP 153/85; PULSE 80; TEMP 36.6
[2020-08-28 06:44] VITALS: BP 124/73; PULSE 63; RESP 14; TEMP 36.4; O2SAT 100
[2020-08-28] MEDS: Milk of Magnesia 30 ML ORAL.SUSP PO (08:46)
--- NOTE | 2020-08-28 10:01 | HO.PSYCHPN ---
Subjective Subjective Date of Service: 08/28/20 Reason For Visit: Schizophrenia Interim History: pt reports he is feeling well, no physical complaints. mood OK, getting along with others, eating and sleeping well. he has no requests for MD. reviewed sustenna schedule, to get one booster on monday and then a maintenance injection monthly thereafter. pt found lying in bed with blanket tucked neatly just under his chin. asking about discharge, when it will be. MD states likely next monday. per staff, pt has been doing his ADLs, being pleasant, attending some groups. denies psychotic Sx. slept well overnight. Mental Status Exam Mental Status Exam Narrative: lying in bed, covered by blanket up to chin. cooperative with interview. no PMA/PMR. speech nml in rate, amount, loudness, tone, latency. thoughts linear and logical. mood euthymic. affect flexible, full-range, normo-intense, non-labile. no SI/HI/AVH expressed. Diagnostics Vital Signs (24Hr): Vital Signs - 24 hr 08/27/20 18:25 08/28/20 06:44 Temperature 97.9 F 97.5 F Pulse Rate 80 63 Respiratory Rate 14 Blood Pressure 153/85 H 124/73 Pulse Oximetry 100 Body Mass Index 25.9 Labs Results: 08/05/20 06:55 08/05/20 06:55 Medications Medications Current Medications Generic Name Dose Route Start Last Admin Trade Name Freq PRN Reason Stop Dose Admin Acetaminophen 650 mg 08/04/20 20:03 08/26/20 22:05 Acetaminophen 325 Mg Tablet PO 650 mg Q6H PRN Administration Headache/Pain Mild Scale (1-3) Al Hydroxide/Mg Hydroxide 30 ml 08/04/20 20:03 Magnesium Hydrox/Alum Hydrox 30 Ml Oral.Susp PO Q6H PRN Heartburn/Nausea Bictegravir/Emtricitabine/Tenofovir 1 tab 08/17/20 09:00 08/28/20 08:45 Bictegrav/Emtricit/Tenofov Ala 1 Tab Tablet PO 1 tab DAILY SUJATHA Administration Diphenhydramine HCl 50 mg 08/05/20 10:07 Diphenhydramine Hcl 25 Mg Tablet PO Q4H PRN agitation Haloperidol 5 mg 08/05/20 10:07 Haloperidol 5 Mg Tablet PO Q4H PRN agitation Hydroxyzine HCl 25 mg 08/04/20 20:03 Hydroxyzine Hcl 25 Mg Tablet PO BEDTIME PRN Anxiety Magnesium Hydroxide 30 ml 08/13/20 14:45 08/28/20 08:46 Milk Of Magnesia 30 Ml Oral.Susp PO 30 ml DAILY SUJATHA Administration Paliperidone Palmitate 156 mg 08/29/20 14:00 Paliperidone Palmitate 156 Mg/Ml Syringe IM 08/29/20 14:01 ONCE ONE Trazodone HCl 50 mg 08/04/20 20:03 Trazodone Hcl 50 Mg Tablet PO BEDTIME PRN Insomnia Allergies Allergies Allergy/AdvReac Type Severity Reaction Status Date / Time No Known Allergies Allergy Verified 08/04/20 20:02 Assessment & Plan Assessment & Plan (1) HIV (human immunodeficiency virus infection): Status: Acute Code(s): B20 - Human immunodeficiency virus [HIV] disease Assessment and Plan: He is documented HIV,hard copy at [facility] on their EMR He has been briefly on Biktarvy He has had CD4 count 249 in past It may be lower now and needs PJP prophylaxis if under 100 (2) Syphilis: Status: Acute Code(s): A53.9 - Syphilis, unspecified Assessment and Plan: Possible neurosyphilis was treated with IV PCN completed 12/26 There is no ocular or hearing symptoms at this time Titer should resolve four fold at least Check titer (3) Schizophrenia: Qualifiers: Schizophrenia type: paranoid schizophrenia Qualified Code(s): F20.0 - Paranoid schizophrenia Status: Acute Code(s): F20.9 - Schizophrenia, unspecified Assessment and Plan: IMPRESSION: patient is a 54-year-old male with history of psychotic illness who presented for disorganized behavior, threatening behavior and paranoid delusional thinking. patient presented as floridly psychotic and met criteria for schizophrenia. at admission patient lacked all insight. Crisis note reports his family said he had been making threats regarding his neighbors and had been threatening the family's presence. at admission Patient refused medications and refused to sign into the hospital. restarted medications he was prescribed in the past, Risperdal. patient was started on Risperdal 2 mg b.i.d. on admission he gave verbal permission to talk to both his mother and his nephew Aiden both reported that patient had been making verbal threats to kill the neighbors and some times holding a knife while saying so. Given that patient was psychotic, had been reportedly making homicidal threats while holding a weapon and had no insight, team agreed to petition court for civil commitment for safety and stabilization. despite saying that he does not want medications and does not need them, he has thus far has been taking Risperdal PO. since 08/13/20, he has been friendlier, smiles more, jokes a little and is easier to engage; staff reports he was out of his room and engaging some with staff. has been med-compliant since at least 08/16. remains calm, friendly. PLAN: -risperidone increased to 7 mg daily; then pt agreed to VICENTE 08/25 so PO risperidone DCed and invega sustenna 234 mg given 08/25 and 156 mg ordered for 08/29. patient on SECTION 7 Q 15 minutes checks for safety infectious disease consult see above for recs plan to DC next monday, rescind commitment petition. Greater than 50% of the session was spent on counseling and/or coordination of care Reason for contiued inpatient stay Substantial Risk for: harm to others, inability to function and rapid decompensation
[2020-08-28 16:18] VITALS: BP 126/76; PULSE 66; TEMP 36.6
--- NOTE | 2020-08-29 06:42 | HO.PSYCHPN ---
Subjective Subjective Date of Service: 08/31/20 Reason For Visit: Schizophrenia Interim History: Pt reports feeling great. Although he does not think he needed to be in hospital does report he thinks medications are helping him to feel calmer. He reports at home he thought people breaking in and not feeling safe there. He denies any safety concern here in the unit. He denies SI/HI. he denies VH/AH. mostly in his room, pleasant on approach, taking medications as prescribed. No behavioral concerns. Review of Systems Review of Systems Yes all other systems are reviewed and are negative Gastrointestinal: Reports change in bowel habits and Reports constipation Reports behavioral changes Psychiatric: Reports anxiety, Reports behavioral changes, Reports difficulty concentrating, Reports auditory hallucinations, Reports paranoia, Reports hallucinations and Reports suicidal ideation (denies) Mental Status Exam Mental Status Exam Narrative: lying in bed, covered by blanket up to chin. cooperative with interview. no PMA/PMR. speech nml in rate, amount, loudness, tone, latency. thoughts linear and logical. mood euthymic. affect flexible, full-range, normo-intense, non-labile. no SI/HI/AVH expressed. Patient Appearance: Appropriate Patient Orientation: Person, Place and Time Level of Consciousness: Alert Patient Behavior: Cooperative and Good Eye Contact Mood Description: Constricted Affect Description: Constricted Patient Cognition Impaired: No Ability to Follow Directions: Good Speech Pattern: Appropriate and Spontaneous Speech Memory Description: Episodic Impaired Diagnostics Vital Signs (24Hr): Vital Signs - 24 hr 08/30/20 16:09 Temperature 97.1 F Pulse Rate 64 Blood Pressure 131/75 Body Mass Index 25.9 Labs Results: 08/05/20 06:55 08/05/20 06:55 Medications Medications Current Medications Generic Name Dose Route Start Last Admin Trade Name Freq PRN Reason Stop Dose Admin Acetaminophen 650 mg 08/04/20 20:03 08/26/20 22:05 Acetaminophen 325 Mg Tablet PO 650 mg Q6H PRN Administration Headache/Pain Mild Scale (1-3) Al Hydroxide/Mg Hydroxide 30 ml 08/04/20 20:03 Magnesium Hydrox/Alum Hydrox 30 Ml Oral.Susp PO Q6H PRN Heartburn/Nausea Bictegravir/Emtricitabine/Tenofovir 1 tab 08/17/20 09:00 08/30/20 07:55 Bictegrav/Emtricit/Tenofov Ala 1 Tab Tablet PO 1 tab DAILY SUJATHA Administration Diphenhydramine HCl 50 mg 08/05/20 10:07 Diphenhydramine Hcl 25 Mg Tablet PO Q4H PRN agitation Haloperidol 5 mg 08/05/20 10:07 Haloperidol 5 Mg Tablet PO Q4H PRN agitation Hydroxyzine HCl 25 mg 08/04/20 20:03 Hydroxyzine Hcl 25 Mg Tablet PO BEDTIME PRN Anxiety Magnesium Hydroxide 30 ml 08/13/20 14:45 08/30/20 07:55 Milk Of Magnesia 30 Ml Oral.Susp PO 30 ml DAILY SUJATHA Administration Trazodone HCl 50 mg 08/04/20 20:03 Trazodone Hcl 50 Mg Tablet PO BEDTIME PRN Insomnia Allergies Allergies Allergy/AdvReac Type Severity Reaction Status Date / Time No Known Allergies Allergy Verified 08/04/20 20:02 Assessment & Plan Assessment & Plan (1) HIV (human immunodeficiency virus infection): Status: Acute Code(s): B20 - Human immunodeficiency virus [HIV] disease Assessment and Plan: He is documented HIV,hard copy at [facility] on their EMR He has been briefly on Biktarvy He has had CD4 count 249 in past It may be lower now and needs PJP prophylaxis if under 100 (2) Syphilis: Status: Acute Code(s): A53.9 - Syphilis, unspecified Assessment and Plan: Possible neurosyphilis was treated with IV PCN completed 12/26 There is no ocular or hearing symptoms at this time Titer should resolve four fold at least Check titer (3) Schizophrenia: Qualifiers: Schizophrenia type: paranoid schizophrenia Qualified Code(s): F20.0 - Paranoid schizophrenia Status: Acute Code(s): F20.9 - Schizophrenia, unspecified Assessment and Plan: IMPRESSION: patient is a 54-year-old male with history of psychotic illness who presented for disorganized behavior, threatening behavior and paranoid delusional thinking. patient presented as floridly psychotic and met criteria for schizophrenia. at admission patient lacked all insight. Crisis note reports his family said he had been making threats regarding his neighbors and had been threatening the family's presence. at admission Patient refused medications and refused to sign into the hospital. restarted medications he was prescribed in the past, Risperdal. patient was started on Risperdal 2 mg b.i.d. on admission he gave verbal permission to talk to both his mother and his nephew Aiden both reported that patient had been making verbal threats to kill the neighbors and some times holding a knife while saying so. Given that patient was psychotic, had been reportedly making homicidal threats while holding a weapon and had no insight, team agreed to petition court for civil commitment for safety and stabilization. despite saying that he does not want medications and does not need them, he has thus far has been taking Risperdal PO. since 08/13/20, he has been friendlier, smiles more, jokes a little and is easier to engage; staff reports he was out of his room and engaging some with staff. has been med-compliant since at least 08/16. remains calm, friendly. PLAN: -risperidone increased to 7 mg daily; then pt agreed to VICENTE 08/25 so PO risperidone DCed and invega sustenna 234 mg given 08/25 and 156 mg ordered for 08/29. patient on SECTION 7 Q 15 minutes checks for safety infectious disease consult see above for recs plan to DC next monday, rescind commitment petition. Greater than 50% of the session was spent on counseling and/or coordination of care Reason for contiued inpatient stay Substantial Risk for: inability to function
[2020-08-29] MEDS: Milk of Magnesia 30 ML ORAL.SUSP PO (08:32)
[2020-08-29 08:55] VITALS: BP 139/82; PULSE 69; RESP 16; TEMP 36.5; O2SAT 97
[2020-08-29 18:00] VITALS: BP 130/75; PULSE 64; TEMP 36.2
[2020-08-29] MEDS: Paliperidone Palmitate 156 MG/ML SYRINGE IM (21:18)
[2020-08-30 06:00] VITALS: BP 111/70; PULSE 100; RESP 18; TEMP 36.5; O2SAT 96
[2020-08-30] MEDS: Milk of Magnesia 30 ML ORAL.SUSP PO (07:55)
[2020-08-30 16:09] VITALS: BP 131/75; PULSE 64; TEMP 36.2
[2020-08-31 06:00] VITALS: BP 119/64; PULSE 62; TEMP 36; O2SAT 97
[2020-08-31] MEDS: Milk of Magnesia 30 ML ORAL.SUSP PO (08:01)
--- NOTE | 2020-08-31 10:03 | HO.PSYCHPN ---
Subjective Subjective Date of Service: 08/31/20 Reason For Visit: Schizophrenia Interim History: Patient in a good mood. He says that he felt was a good decision to get on the long-acting medication and denies any side effects. He is hopeful to go home soon. Patient remains delusional however his symptoms have improved. Patient no longer thinks he is on a movie set or that this hospitalization is really just a movie where he is 1 of the characters and now understands it to be a psychiatric hospital. Patient auditory hallucinations have fully resolved: Patient remains delusional about this and continues to lack insight, saying that his coworkers are no longer talking to him because if he was to have a conversation with them through his virtual ear [place], others might over here in think he is ?meghanzy. He assumes it is discuss he is in the hospital and has nothing to do with the medications. Patient took his medication for syphilis and continues to take his anti-retroviral. He still does not believe he has HIV and that any lab work related to that is due to someone taking his social security number and getting labs drawn; however he believes that he needs to take his anti retroviral medication as ?prep ?to make sure that he does not contract HIV. Patient still believes that his upstairs neighbors were coming into his apartment however he says that if it were to happen again he will not interact with them at all; instead he says ?I will just call the police ? and reiterates that he will not approach them in any way at all. Patient says he understands that if he does, he can get into ?big trouble ? which he wants to avoid and will thus just contact the authorities as needed. Patient says he plans to return to live with his mother. He is under the impression that his mother feels he is ready to come home. Steel Engraver explained the difficulty in contacting her and patient agreed it is unusual for her phone to not receive calls but asks magnetic tape typewriter operator to try again, to which it is agreed. Of note, patient is in the milieu, going to groups, social with peers and staff and with appropriate behavior. Medication Compliance: Yes Side effects from medications: No Attending Groups: Yes Mental Status Exam Mental Status Exam Narrative: Pt is alert and oriented; behavior is cooperative; he is calmly lying in bed; patient is not in distress, wearing casual cloths and hat, well groomed; mood is described as good and affect friendly; eye contact appropriate; Speech is normal rate, volume and prosody and not pressured; no psychomotor agitation/retardation present; thought process is linear and goal directed. Thought content remains with with some paranoid, persecutory delusions and some grandiosity, however less intense. AH have fully resolved; he continues to deny any SI/HI and denies any thoughts, plans or intention to harm his neighbors. Patients insight and judgment remain impaired but have significantly improved. Diagnostics Vital Signs (24Hr): Vital Signs - 24 hr 08/30/20 16:09 08/31/20 06:00 Temperature 97.1 F 96.8 F Pulse Rate 64 62 Blood Pressure 131/75 119/64 Pulse Oximetry 97 Body Mass Index 25.9 Labs Results: 08/05/20 06:55 08/05/20 06:55 Medications Medications Current Medications Generic Name Dose Route Start Last Admin Trade Name Freq PRN Reason Stop Dose Admin Acetaminophen 650 mg 08/04/20 20:03 08/26/20 22:05 Acetaminophen 325 Mg Tablet PO 650 mg Q6H PRN Administration Headache/Pain Mild Scale (1-3) Al Hydroxide/Mg Hydroxide 30 ml 08/04/20 20:03 Magnesium Hydrox/Alum Hydrox 30 Ml Oral.Susp PO Q6H PRN Heartburn/Nausea Bictegravir/Emtricitabine/Tenofovir 1 tab 08/17/20 09:00 08/31/20 08:01 Bictegrav/Emtricit/Tenofov Ala 1 Tab Tablet PO 1 tab DAILY SUJATHA Administration Diphenhydramine HCl 50 mg 08/05/20 10:07 Diphenhydramine Hcl 25 Mg Tablet PO Q4H PRN agitation Haloperidol 5 mg 08/05/20 10:07 Haloperidol 5 Mg Tablet PO Q4H PRN agitation Hydroxyzine HCl 25 mg 08/04/20 20:03 Hydroxyzine Hcl 25 Mg Tablet PO BEDTIME PRN Anxiety Magnesium Hydroxide 30 ml 08/13/20 14:45 08/31/20 08:01 Milk Of Magnesia 30 Ml Oral.Susp PO 30 ml DAILY SUJATHA Administration Trazodone HCl 50 mg 08/04/20 20:03 Trazodone Hcl 50 Mg Tablet PO BEDTIME PRN Insomnia Allergies Allergies Allergy/AdvReac Type Severity Reaction Status Date / Time No Known Allergies Allergy Verified 08/04/20 20:02 Assessment & Plan Assessment & Plan (1) HIV (human immunodeficiency virus infection): Status: Acute Code(s): B20 - Human immunodeficiency virus [HIV] disease Assessment and Plan: He is documented HIV,hard copy at [facility] on their EMR He has been briefly on Biktarvy He has had CD4 count 249 in past It may be lower now and needs PJP prophylaxis if under 100 (2) Syphilis: Status: Acute Code(s): A53.9 - Syphilis, unspecified Assessment and Plan: Possible neurosyphilis was treated with IV PCN completed 12/26 There is no ocular or hearing symptoms at this time Titer should resolve four fold at least Check titer (3) Schizophrenia: Qualifiers: Schizophrenia type: paranoid schizophrenia Qualified Code(s): F20.0 - Paranoid schizophrenia Status: Acute Code(s): F20.9 - Schizophrenia, unspecified Assessment and Plan: IMPRESSION: patient is a 54-year-old male with history of psychotic illness who presented for disorganized behavior, threatening behavior and paranoid delusional thinking. patient presented as floridly psychotic and met criteria for schizophrenia. at admission patient lacked all insight. Crisis note reports his family said he had been making threats regarding his neighbors and had been threatening the family's presence. at admission Patient refused medications and refused to sign into the hospital. restarted medications he was prescribed in the past, Risperdal. patient was started on Risperdal 2 mg b.i.d. on admission he gave verbal permission to talk to both his mother and his nephew Aiden both reported that patient had been making verbal threats to kill the neighbors and some times holding a knife while saying so. Given that patient was psychotic, had been reportedly making homicidal threats while holding a weapon and had no insight, team agreed to petition court for civil commitment for safety and stabilization. despite saying that he does not want medications and does not need them, he has thus far has been taking Risperdal PO. since 08/13/20, he has been friendlier, smiles more, jokes a little and is easier to engage; staff reports he was out of his room and engaging some with staff. has been med-compliant since at least 08/16. remains calm, friendly. Improved symptoms: AH have resolved No longer thinks his admission has anything to do with a movie that he is in, understands that psychiatric admission Has been and continues to take his anti-retroviral medication consistently (formally refused) Took and completed antibiotic course for syphilis (formally refused) Of note, patient is interacting in the milieu, going to groups, social with peers and staff and with appropriate behavior. He has not demonstrated any unsafe behavior throughout entire admission and he denies any plans, intent, or thoughts about hurting his neighbors or even interacting with them and has a safe and appropriate plan on how to handle any concerns he has regarding neighbors -He continues to have delusional thinking, however this is unlikely to resolve much more (or at least will take much more time) and currently patient is not in imminent risk for harm to self or others; his plan is to continue living with his mother who is supportive and understands his psychiatric condition. Patient tolerates his medications well and agrees to continue on with long-acting injectable. At this point the only barrier to his discharge is contacting his mother who initially said he was not allowed to live there until he was stabilized on medications; magnetic tape typewriter operator and team would like to make sure that he can return home at this time, as homelessness would risk rapid decompensation. Mother: [phone]: Steel Engraver has called numerous times and unable to get through PLAN: -risperidone switched to VICENTE 08/25 (so PO risperidone DCed) -invega sustenna 234 mg given 08/25 -invega sustenna 156 mg given on 08/29. patient on SECTION 7 Q 15 minutes checks for safety infectious disease consult see above for recs plan to DC next monday, rescind commitment petition. Greater than 50% of the session was spent on counseling and/or coordination of care Reason for contiued inpatient stay Substantial Risk for: other
[2020-08-31 16:30] VITALS: BP 133/82; PULSE 62; TEMP 36.5
[2020-09-01 06:31] VITALS: BP 140/85; PULSE 82; RESP 16; TEMP 36.8; O2SAT 98
[2020-09-01] MEDS: Milk of Magnesia 30 ML ORAL.SUSP PO (08:07)
--- NOTE | 2020-09-01 14:06 | P.PNPSI_ITS ---
Subjective Subjective Date of Service: 09/02/20 Reason For Visit: Schizophrenia Interim History: Patient is in a good mood and hoping for discharge soon. Liturgical Music Director discussed patient's admission, and reiterates that that he is not going to interact with his neighbors and says ?I am not going to take anything into my own hands... I will just call the police. Patient remains in agreement with medication plan, to continue getting long-acting injectable and take Biktarvy. Liturgical Music Director explains the importance of getting a hold of his mother before discharge and patient said he will continue to try calling her phone. Or no other complaints; patient remains in good behavioral control, social in the milieu, appropriate with peers and staff, eating and sleeping well. Mental Status Exam Mental Status Exam Narrative: Pt is alert and oriented; behavior is cooperative; he is calmly sitting on bed; patient is not in distress, wearing casual cloths and hat, well groomed; mood is described as good and affect friendly; eye contact appropriate; Speech is? normal rate, volume and prosody and not pressured; no psychomotor agitation/retardation present; thought process is linear and goal directed. Thought content remains with with some paranoid, persecutory delusions and some grandiosity, however less intense. AH have fully resolved; he continues to deny any SI/HI and denies any thoughts, plans or intention to harm his neighbors. Patients insight and judgment remain impaired but have significantly improved. Diagnostics Vital Signs (24Hr): Vital Signs - 24 hr 08/31/20 16:30 09/01/20 06:31 Temperature 97.7 F 98.2 F Pulse Rate 62 82 Respiratory Rate 16 Blood Pressure 133/82 140/85 H Pulse Oximetry 98 Body Mass Index 25.9 Labs Results: 08/05/20 06:55 08/05/20 06:55 Medications Medications Current Medications Generic Name Dose Route Start Last Admin Trade Name Freq PRN Reason Stop Dose Admin Acetaminophen 650 mg 08/04/20 20:03 08/26/20 22:05 Acetaminophen 325 Mg Tablet PO 650 mg Q6H PRN Administration Headache/Pain Mild Scale (1-3) Al Hydroxide/Mg Hydroxide 30 ml 08/04/20 20:03 Magnesium Hydrox/Alum Hydrox 30 Ml Oral.Susp PO Q6H PRN Heartburn/Nausea Bictegravir/Emtricitabine/Tenofovir 1 tab 08/17/20 09:00 09/01/20 08:07 Bictegrav/Emtricit/Tenofov Ala 1 Tab Tablet PO 1 tab DAILY SUJATHA Administration Diphenhydramine HCl 50 mg 08/05/20 10:07 Diphenhydramine Hcl 25 Mg Tablet PO Q4H PRN agitation Haloperidol 5 mg 08/05/20 10:07 Haloperidol 5 Mg Tablet PO Q4H PRN agitation Hydroxyzine HCl 25 mg 08/04/20 20:03 Hydroxyzine Hcl 25 Mg Tablet PO BEDTIME PRN Anxiety Magnesium Hydroxide 30 ml 08/13/20 14:45 09/01/20 08:07 Milk Of Magnesia 30 Ml Oral.Susp PO 30 ml DAILY SUJATHA Administration Trazodone HCl 50 mg 08/04/20 20:03 Trazodone Hcl 50 Mg Tablet PO BEDTIME PRN Insomnia Allergies Allergies Allergy/AdvReac Type Severity Reaction Status Date / Time No Known Allergies Allergy Verified 08/04/20 20:02 Assessment & Plan Assessment & Plan (1) HIV (human immunodeficiency virus infection): Status: Acute Code(s): B20 - Human immunodeficiency virus [HIV] disease Assessment and Plan: He is documented HIV,hard copy at [facility] on their EMR He has been briefly on Biktarvy He has had CD4 count 249 in past It may be lower now and needs PJP prophylaxis if under 100 (2) Syphilis: Status: Acute Code(s): A53.9 - Syphilis, unspecified Assessment and Plan: Possible neurosyphilis was treated with IV PCN completed 12/26 There is no ocular or hearing symptoms at this time Titer should resolve four fold at least Check titer (3) Schizophrenia: Qualifiers: Schizophrenia type: paranoid schizophrenia Qualified Code(s): F20.0 - Paranoid schizophrenia Status: Acute Code(s): F20.9 - Schizophrenia, unspecified Assessment and Plan: IMPRESSION: patient is a 54-year-old male with history of psychotic illness who presented for disorganized behavior, threatening behavior and paranoid delusional thinking. patient presented as floridly psychotic and met criteria for schizophrenia. at admission patient lacked all insight. Crisis note reports his family said he had been making threats regarding his neighbors and had been threatening the family's presence. at admission Patient refused medications and refused to sign into the hospital. restarted medications he was prescribed in the past, Risperdal. patient was started on Risperdal 2 mg b.i.d. on admission he gave verbal permission to talk to both his mother and his nephew Aiden both reported that patient had been making verbal threats to kill the neighbors and some times holding a knife while saying so. Given that patient was psychotic, had been reportedly making homicidal threats while holding a weapon and had no insight, team agreed to petition court for civil commitment for safety and st abilization. despite saying that he does not want medications and does not need them, he has thus far has been taking Risperdal PO. since 08/13/20, he has been friendlier, smiles more, jokes a little and is easier to engage; staff reports he was out of his room and engaging some with staff. has been med-compliant since at least 08/16. remains calm, friendly. Improved symptoms: AH have resolved No longer thinks his admission has anything to do with a movie that he is in, understands that psychiatric admission Has been and continues to take his anti-retroviral medication consistently (formally refused) Took and completed antibiotic course for syphilis (formally refused) Of note, patient is interacting in the milieu, going to groups, social with peers and staff and with appropriate behavior. He has not demonstrated any unsafe behavior throughout entire admission and he denies any plans, intent, or thoughts about hurting his neighbors or even interacting with them and has a safe and appropriate plan on how to handle any concerns he has regarding neighbors -He continues to have delusional thinking, however this is unlikely to resolve much more (or at least will take much more time) and currently patient is not in imminent risk for harm to self or others; his plan is to continue living with his mother who is supportive and understands his psychiatric condition. Patient tolerates his medications well and agrees to continue on with long-acting injectable. At this point the only barrier to his discharge is contacting his mother who initially said he was not allowed to live there until he was stabilized on medications; personal lines underwriter and team would like to make sure that he can return home at this time, as homelessness would risk rapid decompensation. Mother: [phone]: Liturgical Music Director has called numerous times and unable to get through PLAN: -risperidone switched to VICENTE 08/25 (so PO risperidone DCed) -invega sustenna 234 mg given 08/25 -invega sustenna 156 mg given on 08/29. patient on SECTION 7 Q 15 minutes checks for safety infectious disease consult see above for recs plan to DC next monday, rescind commitment petition. Greater than 50% of the session was spent on counseling and/or coordination of care Reason for contiued inpatient stay Substantial Risk for: other
[2020-09-01 18:00] VITALS: BP 130/76; PULSE 76; TEMP 36.6
[2020-09-02 06:45] VITALS: BP 120/69; PULSE 63; TEMP 36.4; O2SAT 97
[2020-09-02] MEDS: Milk of Magnesia 30 ML ORAL.SUSP PO (08:31)
--- NOTE | 2020-09-02 16:02 | P.PNPSI_ITS ---
Subjective Subjective Date of Service: 09/22/20 Reason For Visit: Schizophrenia Interim History: pt thanked telegraphic typewriter operator; good mood; no SI, no HI. feeling ready to come home telegraphic typewriter operator talked with mother who agrees that patient is ready to come home Contacted new PCP YAMILETH Castillo to discuss case. Medication Compliance: Yes Side effects from medications: No Mental Status Exam Mental Status Exam Narrative: Pt is alert and oriented; behavior is cooperative, calm, not in distress, wearing casual cloths, hat and well groomed; mood is described as good and affect friendly; eye contact appropriate; Speech is? normal rate, volume and prosody and not pressured; no psychomotor agitation/retardation present; thought process is linear and goal directed. Thought content remains with with some paranoid, persecutory delusions and some grandiosity, however less intense. AH have fully resolved; he continues to deny any SI/HI and denies any thoughts, plans or intention to harm his neighbors. Patients insight and judgment remain impaired but have significantly improved. Diagnostics Vital Signs (24Hr): Vital Signs - 24 hr 09/01/20 18:00 09/02/20 06:45 Temperature 98 F 97.6 F Pulse Rate 76 63 Blood Pressure 130/76 120/69 Pulse Oximetry 97 Body Mass Index 25.9 Labs Results: 08/05/20 06:55 08/05/20 06:55 Medications Medications Current Medications Generic Name Dose Route Start Last Admin Trade Name Freq PRN Reason Stop Dose Admin Acetaminophen 650 mg 08/04/20 20:03 08/26/20 22:05 Acetaminophen 325 Mg Tablet PO 650 mg Q6H PRN Administration Headache/Pain Mild Scale (1-3) Al Hydroxide/Mg Hydroxide 30 ml 08/04/20 20:03 Magnesium Hydrox/Alum Hydrox 30 Ml Oral.Susp PO Q6H PRN Heartburn/Nausea Bictegravir/Emtricitabine/Tenofovir 1 tab 08/17/20 09:00 09/02/20 08:30 Bictegrav/Emtricit/Tenofov Ala 1 Tab Tablet PO 1 tab DAILY SUJATHA Administration Diphenhydramine HCl 50 mg 08/05/20 10:07 Diphenhydramine Hcl 25 Mg Tablet PO Q4H PRN agitation Haloperidol 5 mg 08/05/20 10:07 Haloperidol 5 Mg Tablet PO Q4H PRN agitation Hydroxyzine HCl 25 mg 08/04/20 20:03 Hydroxyzine Hcl 25 Mg Tablet PO BEDTIME PRN Anxiety Magnesium Hydroxide 30 ml 08/13/20 14:45 09/02/20 08:31 Milk Of Magnesia 30 Ml Oral.Susp PO 30 ml DAILY SUJATHA Administration Trazodone HCl 50 mg 08/04/20 20:03 Trazodone Hcl 50 Mg Tablet PO BEDTIME PRN Insomnia Allergies Allergies Allergy/AdvReac Type Severity Reaction Status Date / Time No Known Allergies Allergy Verified 08/04/20 20:02 Assessment & Plan Assessment & Plan (1) HIV (human immunodeficiency virus infection): Status: Chronic Code(s): B20 - Human immunodeficiency virus [HIV] disease Assessment and Plan: He is documented HIV,hard copy at [facility] on their EMR He has been briefly on Biktarvy He has had CD4 count 249 in past It may be lower now and needs PJP prophylaxis if under 100 (2) Syphilis: Status: Resolved Code(s): A53.9 - Syphilis, unspecified Assessment and Plan: Possible neurosyphilis was treated with IV PCN completed 12/26 There is no ocular or hearing symptoms at this time Titer should resolve four fold at least Check titer (3) Schizophrenia: Qualifiers: Schizophrenia type: paranoid schizophrenia Qualified Code(s): F20.0 - Paranoid schizophrenia Status: Chronic Code(s): F20.9 - Schizophrenia, unspecified Assessment and Plan: IMPRESSION: patient is a 54-year-old male with history of psychotic illness who presented for disorganized behavior, threatening behavior and paranoid delusional thinking. ? patient presented as floridly psychotic and met criteria for schizophrenia. at admission patient lacked all insight.? Crisis note reports his family said he had been making threats regarding his neighbors and had been threatening? the family's presence.? ? at admission Patient refused medications and refused to sign into the hospital.? restarted medications he was prescribed in the past, Risperdal. ?patient was started on Risperdal 2 mg b.i.d. on admission he gave verbal permission to talk to both his mother( Mother: [phone])? and his nephew Aiden? both reported that patient had been making verbal threats to kill the neighbors and some times holding a knife while saying so.? Given that patient was psychotic, had been reportedly making homicidal threats while holding a weapon and had no insight, team agreed to petition court for civil commitment for safety and stabilization.?However, after meeting with his instructional writer, pt decided to sign a CV and take medication. since 08/13/20, he has been friendlier, smiles more, jokes a little and is easier to engage; staff reports he was out of his room and engaging some with staff.? has been med-compliant since at least 08/16.? remains calm, friendly. Towards end of admission: Improved symptoms: AH have resolved No longer thinks his admission has anything to do with a movie that he is in, understands that psychiatric admission Has been and continues to take his anti-retroviral medication? consistently (formally refused) Took and completed antibiotic course for syphilis (formally refused) Of note, patient is interacting in the milieu, going to groups, social with peers and staff and with appropriate behavior.? He has not demonstrated any unsafe behavior throughout entire admission and he denies any plans, intent, or thoughts about hurting his neighbors or even interacting with them and has a safe and appropriate plan on how to handle any concerns he has regarding neighbors -Throughout admission, patient remained without SI or HI and demonstrated appropriate behaviors and good behavioral and impulse control. -He continues to have delusional thinking, however this is unlikely to resolve much more (or at least will take much more time) and currently patient is not in imminent risk for harm to self or others. Given patients history of non- adherence with medication, it is likely that he will at some point develop a worsening of symptoms; however, he is currently safe, stable and does not meet criteria for involuntary commitment. His plan is to continue living with his mother who is supportive and understands his psychiatric condition.? Patient tolerates his medications well and agrees to continue on with long-acting injectable.? Patients request for discharge is honored. PLAN: -risperidone switched to VICENTE 08/25 (so PO risperidone DCed) -invega sustenna 234 mg given 08/25? -invega sustenna 156 mg given on 08/29. Wharf Tender discussed risks/side effects of medication regimen, including but not limited to Risperdal/Invega Sustenna; patient communicated understanding of b enefits, risks and side-effects of medications and wants to continue with regimen. Patient agrees that current doses seem appropriate and denies medication side-effects. Patient agrees to reach out to outpatient provider with any medications concerns. ? Greater than 50% of the session was spent on counseling and/or coordination of care Reason for contiued inpatient stay Substantial Risk for: stable for discharge
--- NOTE | 2020-09-02 16:03 | P.DS_ITS ---
DS: Providers Provider Date of Service: 09/02/20 Date of admission: 08/04/20 18:25 Date of discharge: 09/02/20 Primary care physician: Unknown Physician Attending physician on admission: Stephen Biggs Consults: 08/04/20 20:03 Consult to Hospitalist Routine Consulting Provider: Hospitalist Reason For Exam: new admission 08/11/20 13:59 Consult to Infectious Diseases Routine Consulting Provider: Infectious Disease Reason for consultation: hx HIV (rx Biktarvy); possibly untx syphyllis. Pt psychotic, denies all Has provider been notified: Yes Attending physician on discharge: Stephen Biggs DS: Diagnosis Discharge Diagnosis (1) Schizophrenia: Status: Chronic (2) HIV (human immunodeficiency virus infection): Status: Chronic (3) Syphilis: Status: Resolved DS: Medications Discharge Medications Home Medications: Previous Rx's Medication Instructions Recorded bictegravir 50 mg-emtricitabine 1 tab PO DAILY 30 Days #30 tab 09/02/20 200 mg-tenofovir alafenam 25 mg tablet (Biktarvy) paliperidone palmitate 234 mg/1.5 234 mg IM QMONTH #1.5 ml 09/02/20 mL intramuscular syringe (Invega Sustenna) Mental Status Exam Mental Status Exam Narrative: Pt is alert and oriented; behavior is cooperative, calm, not in distress; mood is described as good and affect friendly; eye contact appropriate; Speech is? normal rate, volume and prosody and not pressured; no psychomotor agitation/retardation present; thought process is linear and goal directed. Thought content remains with with some paranoid, persecutory delusions and some grandiosity, however less intense. AH have fully resolved; he continues to deny any SI/HI and denies any thoughts, plans or intention to harm his neighb ors. Patients insight and judgment remain impaired but have significantly improved. DS: Summary Hospital Course Hospital Course: patient is a 54-year-old male with history of psychotic illness who presented for disorganized behavior, threatening behavior and paranoid delusional thinking. ? patient presented as floridly psychotic and met criteria for schizophrenia. at admission patient lacked all insight.? Crisis note reports his family said he had been making threats regarding his neighbors and had been threatening? the family's presence.? ? at admission Patient refused medications and refused to sign into the hospital.? restarted medications he was prescribed in the past, Risperdal. ?patient was started on Risperdal 2 mg b.i.d. on admission he gave verbal permission to talk to both his mother( Mother: [phone]) and his nephew Aiden? both reported that patient had been making verbal threats to kill the neighbors and some times holding a knife while saying so.? Given that patient was psychotic, had been reportedly making homicidal threats while holding a weapon and had no insight, team agreed to petition court for civil commitment for safety and stabilization.?However, after meeting with his senior recruitment consultant, pt decided to sign a CV and take medication. since 08/13/20, he has been friendlier, smiles more, jokes a little and is easier to engage; staff reports he was out of his room and engaging some with staff.? has been med-compliant since at least 08/16.? remains calm, friendly. Towards end of admission: Improved symptoms: AH have resolved No longer thinks his admission has anything to do with a movie that he is in, understands that psychiatric admission Has been and continues to take his anti-retroviral medication? consistently (formally refused) Took and completed antibiotic course for syphilis (formally refused) Of note, patient is interacting in the milieu, going to groups, social with peer s and staff and with appropriate behavior.? He has not demonstrated any unsafe behavior throughout entire admission and he denies any plans, intent, or thoughts about hurting his neighbors or even interacting with them and has a safe and appropriate plan on how to handle any concerns he has regarding neighbors -Throughout admission, patient remained without SI or HI and demonstrated appropriate behaviors and good behavioral and impulse control. -He continues to have delusional thinking, however this is unlikely to resolve much more (or at least will take much more time) and currently patient is not in imminent risk for harm to self or others. Given patients history of non- adherence with medication, it is likely that he will at some point develop a worsening of symptoms; however, he is currently safe, stable and does not meet criteria for involuntary commitment. His plan is to continue living with his mother who is supportive and understands his psychiatric condition.? Patient tolerates his medications well and agrees to continue on with long-acting injectable.? Patients request for discharge is honored. PLAN: -risperidone switched to VICENTE 7/20 (so PO risperidone DCed) -invega sustenna 234 mg given 08/25? -invega sustenna 156 mg given on 08/29. Manager Office discussed risks/side effects of medication regimen, including but not limited to Risperdal/Invega Sustenna; patient communicated understanding of benefits, risks and side-effects of medications and wants to continue with regimen. Patient agrees that current doses seem appropriate and denies medication side-effects. Patient agrees to reach out to outpatient provider with any medications concerns. Time Spent with Patient Time attestation: Total time spent providing and/or coordinating discharge services: Discharge Plan Discharge Patient Disposition: Home, Self-Care Discharge Diagnosis: Schizophrenia, paranoid type Referrals: [facility] HOME CARE VISITING NURSE [Other] - 1 Week (FAX- [phone] Please call Kaia at [facility] when you get home to start the V[facility] Services- She will need to speak to both yourself and your mother. Ideally we would like to have the visiting RN help you to get in good habits taking your daily medication with regular visits and also be able to give you your medication that comes in the injectable form. They will start services when they hear from you and your mother. ) Tiffanie Freedman (therapy) [Other] - 09/09/20 2:45 pm (This appointment is in- office) Vladimir Sanchez (psychiatry) [Other] - 10/02/20 4:00 pm (This appointment is over the phone and you will need you mother's phone) SHARON RASHEED [Other] - 09/18/20 9:10 am (IN PERSON APPOINTMENT) Discharge Medications: New Biktarvy 50-200-25 mg Tablet 1 tab PO DAILY 30 Days Qty: 30 RF: 0 Invega Sustenna 234 mg/1.5 mL syringe 234 mg IM QMONTH Qty: 1.5 RF: 0 Discharge Orders: Discharge Order (Routine); Ordered 09/02/20 Ordered By: Stephen Biggs Diet: regular diet Activity on Discharge: As tolerated Stand Alone Forms: Patient Portal Discharge page, Community Support Care Plan Goals: Maintain mood and safe behaviors Take medications as prescribed Continue with outpatient providers and reach out to them as needed Health Concerns: Antiretroviral medication adherence Worries about neighbors Plan of Treatment: Follow up with your PCP and psychiatric provider regarding above concerns Take medications as prescribed Assessment: Patient has been observed closely by nursing and unit staff throughout admission; patient has not engaged in any behaviors that suggest dangerousness to self or others and has demonstrated appropriate behaviors and impulse control. Patient was interviewed prior to discharge and found to be fully oriented and without any SI or HI. Patient has insight and demonstrates good judgment in terms of wanting to pursue treatment. Patient is not in imminent risk of harm to self or others and has a safety plan that includes presenting to the closest ER or calling 911 if feeling unsafe.? Discharge Date/Time: 09/03/20 10:00
[2020-09-02 18:00] VITALS: BP 126/72; PULSE 66; TEMP 36.1; O2SAT 98
[2020-09-03 06:27] VITALS: BP 139/72; PULSE 69; RESP 16; TEMP 36.3; O2SAT 98
[2020-09-03] MEDS: Milk of Magnesia 30 ML ORAL.SUSP PO (08:17)
== END 2020-09-03 10:00 | disposition home or self-care (01) | DRG 750 ==
PROVIDERS: Clinical Nurse Specialist Psychiatric/Mental Health; Internal Medicine; Admitting Provider Psychiatry & Neurology Psychiatry; Visit Provider Psychiatry & Neurology Psychiatry
DX: F20.9 Schizophrenia, unspecified (principal); B20 Human immunodeficiency virus [HIV] disease; A53.9 Syphilis, unspecified; K59.00 Constipation, unspecified; F17.210 Nicotine dependence, cigarettes, uncomplicated; Z71.6 Tobacco abuse counseling
CPT/HCPCS: 36415; 80053; 80061; 80076; 82607; 83036; 84439; 85025; 86359; 86360; 86592; 86780; 93005; J2426